=== PATIENT | female | born 1950 | race Native Hawaiian/Other Pacific Islander ===

== ENCOUNTER 2016-05-23 | Outpatient (CLI) | payer OTHER | END 2016-05-23 13:51 | disposition critical access hospital (66) | CPT/HCPCS: A0425; A0427 ==

== ENCOUNTER 2016-05-23 14:42 | Emergency (ER) | payer OTHER ==
[2016-05-23] MEDS ORDERED: SODIUM CHLORIDE 0.9% 1,000 ML IV ONE (14:51)
== END 2016-05-23 17:38 | disposition home or self-care (01) ==
DX: K52.9 Noninfective gastroenteritis and colitis, unspecified (principal); E86.0 Dehydration; I10 Essential (primary) hypertension; Z87.891 Personal history of nicotine dependence

== ENCOUNTER 2016-06-01 10:49 | Outpatient (CLI) | payer OTHER | END 2016-06-01 10:50 | disposition home or self-care (01) | DX: M17.12 Unilateral primary osteoarthritis, left knee (principal) ==

== ENCOUNTER 2016-06-13 17:07 | Outpatient (CLI) | payer MEDICAID, OTHER | END 2016-06-13 17:08 | disposition home or self-care (01) | DX: E78.5 Hyperlipidemia, unspecified (principal); E66.9 Obesity, unspecified; E87.1 Hypo-osmolality and hyponatremia; E11.65 Type 2 diabetes mellitus with hyperglycemia ==

== ENCOUNTER 2016-06-14 07:27 | Outpatient (CLI) | payer MEDICAID, OTHER | END 2016-06-14 07:28 | disposition critical access hospital (66) | LOC: EMS 07:27 | PROVIDERS: ATTEND Surgery | DX: R41.9 Unspecified symptoms and signs involving cognitive functions and awareness (principal); W18.30XA Fall on same level, unspecified, initial encounter; Z91.81 History of falling; Y93.9 Activity, unspecified; Y92.002 Bathroom of unspecified non-institutional (private) residence as the place of occurrence of the external cause | CPT/HCPCS: A0425; A0427 ==

== ENCOUNTER 2016-06-14 07:42 | Observation (INO) | payer OTHER, MEDICAID ==
[2016-06-14] MEDS ORDERED: SODIUM CHLORIDE 0.9% 1,000 ML IV ONE (08:44)
[2016-06-14] MEDS ORDERED: SODIUM CHLORIDE FLUSH 0.9% 10 ML SYRINGE IVP PRN ×2 (10:45→11:24)
[2016-06-14] MEDS ORDERED: ONDANSETRON 4 MG/2 ML VIAL IVP PRN ×2 (10:45→11:25)
[2016-06-14] MEDS ORDERED: ACETAMINOPHEN 325 MG TABLET PO PRN ×2 (10:45→11:24)
[2016-06-14] MEDS ORDERED: ONDANSETRON ODT 4 MG TABLET TL PRN ×2 (10:45→11:25)
[2016-06-14] MEDS ORDERED: oxyCODONE 5 MG TABLET PO PRN (10:45)
[2016-06-14] MEDS ORDERED: SODIUM CHLORIDE 0.9% 1,000 ML IV SCH (11:00)
[2016-06-14] MEDS ORDERED: INSULIN REGULAR HUMAN 100 UNIT/1 ML 10 ML MDV SUBQ SCH (12:00)
[2016-06-14] MEDS: SODIUM CHLORIDE FLUSH 0.9% 10 ML SYRINGE IVP SCH ×2 (12:14→22:22)
[2016-06-14] MEDS: SODIUM CHLORIDE 0.9% 1,000 ML IV SCH ×2 (12:14→22:39)
[2016-06-14] MEDS: INSULIN REGULAR HUMAN 100 UNIT/1 ML 10 ML MDV SUBQ SCH ×2 (12:19→19:14)
[2016-06-14] MEDS ORDERED: SODIUM CHLORIDE FLUSH 0.9% 10 ML SYRINGE IVP SCH (14:00)
[2016-06-14] MEDS: cefTRIAXone 2 GM in SODIUM CHLORIDE 0.9% MINIBAG 100 ML IV SCH (17:27)
[2016-06-14] MEDS ORDERED: INSULIN GLARGINE 300 UNIT/3 ML PEN SUBQ SCH (18:00)
[2016-06-14] MEDS: INSULIN GLARGINE 300 UNIT/3 ML PEN SUBQ SCH (19:11)
[2016-06-15] MEDS: INSULIN REGULAR HUMAN 100 UNIT/1 ML 10 ML MDV SUBQ SCH ×3 (01:26→12:24)
[2016-06-15] MEDS: SODIUM CHLORIDE FLUSH 0.9% 10 ML SYRINGE IVP SCH ×3 (05:55→22:17)
[2016-06-15] MEDS: INSULIN GLARGINE 300 UNIT/3 ML PEN SUBQ SCH ×2 (06:46→18:39)
[2016-06-15] MEDS ORDERED: CLOPIDOGREL 75 MG TABLET PO SCH (09:00)
[2016-06-15] MEDS ORDERED: ASPIRIN EC 81 MG TABLET PO SCH (09:00)
[2016-06-15] MEDS ORDERED: ATORVASTATIN 40 MG TABLET PO SCH (09:00)
[2016-06-15] MEDS ORDERED: POLYETHYLENE GLYCOL 3350 17 GM PACKET PO SCH (09:00)
[2016-06-15] MEDS: ATORVASTATIN 40 MG TABLET PO SCH (09:54)
[2016-06-15] MEDS: POLYETHYLENE GLYCOL 3350 17 GM PACKET PO SCH (09:55)
[2016-06-15] MEDS: SENNA 8.6 MG TABLET PO SCH (09:55)
[2016-06-15] MEDS: CLOPIDOGREL 75 MG TABLET PO SCH (09:55)
[2016-06-15] MEDS: DOCUSATE SODIUM 250 MG CAPSULE PO SCH (09:55)
[2016-06-15] MEDS: ASPIRIN EC 81 MG TABLET PO SCH (09:56)
[2016-06-15] MEDS: INSULIN ASPART 300 UNIT/3 ML PEN SUBQ SCH ×2 (18:32→22:15)
[2016-06-15] MEDS: cefTRIAXone 2 GM in SODIUM CHLORIDE 0.9% MINIBAG 100 ML IV SCH (18:40)
[2016-06-16] MEDS: oxyCODONE 5 MG TABLET PO PRN ×2 (04:05→17:06)
[2016-06-16] MEDS: INSULIN GLARGINE 300 UNIT/3 ML PEN SUBQ SCH ×3 (06:07→23:36)
[2016-06-16] MEDS: SODIUM CHLORIDE FLUSH 0.9% 10 ML SYRINGE IVP SCH ×3 (06:08→22:20)
[2016-06-16] MEDS: INSULIN ASPART 300 UNIT/3 ML PEN SUBQ SCH ×4 (08:38→22:20)
[2016-06-16] MEDS: CLOPIDOGREL 75 MG TABLET PO SCH (08:39)
[2016-06-16] MEDS: POLYETHYLENE GLYCOL 3350 17 GM PACKET PO SCH (08:39)
[2016-06-16] MEDS: DOCUSATE SODIUM 250 MG CAPSULE PO SCH (08:39)
[2016-06-16] MEDS: SENNA 8.6 MG TABLET PO SCH (08:40)
[2016-06-16] MEDS: ATORVASTATIN 40 MG TABLET PO SCH (08:40)
[2016-06-16] MEDS: ASPIRIN EC 81 MG TABLET PO SCH (08:40)
[2016-06-16] MEDS: CEPHALEXIN 250 MG CAPSULE PO SCH ×2 (14:06→17:58)
[2016-06-16] MEDS ORDERED: INSULIN GLARGINE 300 UNIT/3 ML PEN SUBQ SCH (20:38)
[2016-06-17] MEDS: CEPHALEXIN 250 MG CAPSULE PO SCH ×2 (00:01→05:58)
[2016-06-17] MEDS: INSULIN GLARGINE 300 UNIT/3 ML PEN SUBQ SCH (05:58)
[2016-06-17] MEDS: SODIUM CHLORIDE FLUSH 0.9% 10 ML SYRINGE IVP SCH (05:58)
[2016-06-17] MEDS: CLOPIDOGREL 75 MG TABLET PO SCH (08:57)
[2016-06-17] MEDS: ASPIRIN EC 81 MG TABLET PO SCH (08:57)
[2016-06-17] MEDS: ATORVASTATIN 40 MG TABLET PO SCH (08:57)
[2016-06-17] MEDS: INSULIN ASPART 300 UNIT/3 ML PEN SUBQ SCH (08:57)
[2016-06-17] MEDS: DOCUSATE SODIUM 250 MG CAPSULE PO SCH (09:03)
[2016-06-17] MEDS: POLYETHYLENE GLYCOL 3350 17 GM PACKET PO SCH (09:03)
[2016-06-17] MEDS: SENNA 8.6 MG TABLET PO SCH (09:03)
[2016-06-17] MEDS ORDERED: INSULIN ASPART 300 UNIT/3 ML PEN SUBQ SCH (12:00)
== END 2016-06-17 11:06 | disposition home or self-care (01) ==
PROC: 3E0U33Z Introduction of Anti-inflammatory into Joints, Percutaneous Approach (ICD-10-PCS; principal; 2016-06-16)
DX: G93.41 Metabolic encephalopathy (principal); N30.00 Acute cystitis without hematuria; B95.1 Streptococcus, group B, as the cause of diseases classified elsewhere; E11.8 Type 2 diabetes mellitus with unspecified complications; I10 Essential (primary) hypertension; M17.12 Unilateral primary osteoarthritis, left knee; I25.10 Atherosclerotic heart disease of native coronary artery without angina pectoris; N28.9 Disorder of kidney and ureter, unspecified; E86.0 Dehydration; I48.2 Chronic atrial fibrillation; I49.5 Sick sinus syndrome; I69.354 Hemiplegia and hemiparesis following cerebral infarction affecting left non-dominant side; I69.398 Other sequelae of cerebral infarction; G93.89 Other specified disorders of brain; E66.01 Morbid (severe) obesity due to excess calories; E78.5 Hyperlipidemia, unspecified; G47.33 Obstructive sleep apnea (adult) (pediatric); W19.XXXA Unspecified fall, initial encounter; Y92.002 Bathroom of unspecified non-institutional (private) residence as the place of occurrence of the external cause; Y90.0 Blood alcohol level of less than 20 mg/100 ml; Z68.41 Body mass index [BMI] 40.0-44.9, adult; Z91.14 Patient's other noncompliance with medication regimen; Z91.81 History of falling; Z79.02 Long term (current) use of antithrombotics/antiplatelets; Z79.4 Long term (current) use of insulin; Z79.01 Long term (current) use of anticoagulants; Z87.891 Personal history of nicotine dependence; Z95.0 Presence of cardiac pacemaker; Z79.82 Long term (current) use of aspirin; Z63.4 Disappearance and death of family member
CPT/HCPCS: 20610; 36415; 51701; 70450; 71010; 73560; 80048; 80053; 80306; 80320; 81001; 83605; 83690; 83735; 85025; 85610; 85730; 87040; 87077; 87086; 87181; 93005; 93010; 93880; 96361; 96365; 96366; 97161; 99284; 99285; A9270; G0378; J1815

== ENCOUNTER 2016-08-14 08:34 | Outpatient (CLI) | payer OTHER, MEDICAID | END 2016-08-14 08:35 | disposition home or self-care (01) | DX: I10 Essential (primary) hypertension (principal) ==

== ENCOUNTER 2016-08-21 08:44 | Outpatient (CLI) | payer OTHER, MEDICAID | END 2016-08-21 08:45 | disposition home or self-care (01) | DX: I48.0 Paroxysmal atrial fibrillation (principal); I44.2 Atrioventricular block, complete; Z95.0 Presence of cardiac pacemaker; I10 Essential (primary) hypertension; E78.2 Mixed hyperlipidemia; N28.9 Disorder of kidney and ureter, unspecified ==

== ENCOUNTER 2016-09-29 12:44 | Outpatient (CLI) | payer OTHER, MEDICAID | END 2016-09-29 12:45 | disposition short-term general hospital (02) | LOC: EMS 12:44 | PROVIDERS: ATTEND Surgery | DX: R19.7 Diarrhea, unspecified (principal); R42 Dizziness and giddiness | CPT/HCPCS: A0425; A0429 ==

== ENCOUNTER 2016-10-20 14:03 | Outpatient (CLI) | payer OTHER, MEDICAID ==
[2016-10-20 20:10] LABS: CREATININE 1.5 mg/dL (0.4-1.0); POTASSIUM 4.4 mmol/L (3.5-5.0)
[2016-10-20 21:00] LABS: HEMOGLOBIN A1C 1.43 g/dL
== END 2016-10-20 14:04 | disposition home or self-care (01) ==
LOC: LAB.N 14:03
PROVIDERS: ATTEND Family Medicine
DX: E11.65 Type 2 diabetes mellitus with hyperglycemia (principal)
CPT/HCPCS: 36415; 80048; 83036

== ENCOUNTER 2016-11-24 16:15 | Emergency (ER) | payer OTHER, MEDICAID ==
[2016-11-24] MEDS ORDERED: SODIUM CHLORIDE 0.9% 1,000 ML IV ONE ×2 (16:54→18:17)
[2016-11-24] MEDS ORDERED: INSULIN REGULAR HUMAN 100 UNIT in SODIUM CHLORIDE 0.9% 100ML 99 ML IV STA (17:13)
[2016-11-24] MEDS ORDERED: INSULIN REGULAR HUMAN 100 UNIT/1 ML 10 ML MDV IVP STA (17:13)
[2016-11-24 17:14] LABS: BILIRUBIN,URINE NEGATIVE (NEGATIVE); PH,URINE 5.5 PH (5.0-7.5)
[2016-11-24 17:17] LABS: UA w/ MICROSCOPIC CHARGE YES
[2016-11-24] MEDS ORDERED: INSULIN REGULAR HUMAN 100 UNIT/1 ML 10 ML MDV ONE ×3 (17:26→19:12)
[2016-11-24 17:27] LABS: WBC,URINE 0-3 /HPF (0-5)
[2016-11-24] MEDS ORDERED: SODIUM CHLORIDE FLUSH 0.9% 10 ML SYRINGE IVP ONE (17:27)
[2016-11-24 17:28] LABS: UR CULTURE IF IND NOT INDICATED
[2016-11-24 17:30] LABS: BASOPHILS % (AUTO) 0.6 %; EOSINOPHILS # (AUTO) 0.1 10^3/uL (0.0-0.7); EOSINOPHILS % (AUTO) 1.3 %; HCT - HEMATOCRIT 40.3 % (37.0-47.0); HGB - HEMOGLOBIN 13.2 g/dL (12.0-16.0); LYMPHOCYTES # (AUTO) 1.5 10^3/uL (1.5-3.5); LYMPHOCYTES % (AUTO) 20.7 %; MEAN CORPUSCULAR HEMOGLOBIN 28.5 pg (27.0-31.0); MEAN CORPUSCULAR HGB CONC 32.8 g/dL (32.0-36.0); MEAN CORPUSCULAR VOLUME 86.8 fL (81.0-99.0); MEAN PLATELET VOLUME 9.1 fL (7.9-10.8); MONOCYTES # (AUTO) 0.5 10^3/uL (0.0-1.0); MONOCYTES % (AUTO) 6.9 %; NEUTROPHILS # (AUTO) 5.2 10^3/uL (1.5-6.6); NEUTROPHILS % (AUTO) 70.5 %; RED BLOOD COUNT 4.65 10^6/uL (4.20-5.40); RED CELL DISTRIBUTION WIDTH 13.5 % (12.0-15.0); UNCORRECTED WHITE BLOOD COUNT 7.3 x10^3/uL; WHITE BLOOD COUNT 7.3 x10^3/uL (4.8-10.8)
[2016-11-24 17:47] LABS: ALBUMIN/GLOBULIN RATIO 0.8 (1.0-2.2); BILIRUBIN,TOTAL 0.6 mg/dL (0.2-1.0); CALCIUM 8.9 mg/dL (8.5-10.3); CREATININE 2.1 mg/dL (0.4-1.0); POTASSIUM 4.8 mmol/L (3.5-5.0); TOTAL PROTEIN 7.7 g/dL (6.7-8.2)
--- NOTE | 2016-11-24 18:42 | ED Physician Documentation ---
History of Present Illness - Stated complaint Stated Complaint: DIZZY,NAUSEA - Chief complaint Chief Complaint: General - History obtained from History obtained from: Patient, Family - Additonal information Additional information: The patient is a 66-year-old insulin-dependent diabetic female who presents with dizziness and nausea that has been waxing and waning for the past 3 days. She reports vomiting 2 today. She reports associated lightheadedness. She denies fever, chest pain, shortness of breath, abdominal pain, or dysuria. She reports mild cough without sputum production. She also reports frequency of urination. She reports having history of similar symptoms in the past with urinary tract infection. She was seen in the clinic today and was found to have an elevated blood sugar of 563, and was subsequently sent here for further evaluation and treatment. Review of Systems Constitutional: reports: Fatigue, Other (Lightheaded). denies: Fever Ears: denies: Tinnitus/ringing Nose: denies: Congestion Throat: denies: Sore throat Cardiac: denies: Chest pain / pressure, Palpitations Respiratory: reports: Cough (Mild). denies: Dyspnea GI: reports: Nausea, Vomiting. denies: Abdominal Pain, Diarrhea : reports: Frequency. 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 : Benign prostate hypertrophy HEENT: Other Psych: None Musculoskeletal: Osteoarthritis Derm: None - Past Surgical History Past Surgical History: Yes - Present Medications Home Medications: Ambulatory Orders Medication Instructions Recorded Confirmed Apixaban [Eliquis] 5 mg PO BID 06/14/16 06/14/16 Atorvastatin Calcium 40 mg PO QPM 06/14/16 06/14/16 Carvedilol 25 mg PO BID 06/14/16 06/14/16 Chlorthalidone 25 mg PO BID 06/14/16 06/14/16 Insulin Glargine [Lantus Solostar] 60 units SUBQ DAILY 06/14/16 06/14/16 Insulin Glulisine [Apidra Solostar] 3 units SUBQ TIDWM 06/14/16 06/14/16 Losartan [Cozaar] 50 mg PO BID 06/14/16 06/14/16 Promethazine [Phenergan] 25 - 50 mg PO Q6H PRN #10 tab 11/24/16 - Allergies Allergies/Adverse Reactions: Allergies Allergy/AdvReac Type Severity Reaction Status Date / Time naproxen AdvReac Rash Verified 05/23/16 15:16 - Living Situation Living Situation: reports: With family - Social History Does the pt smoke?: No Smoking Status: Former smoker Does the pt have substance abuse?: No - Immunizations Immunizations are current?: No Immunizations: TDAP current <10years - POLST Patient has POLST: No PD ED PE NORMAL - Vitals Vital signs reviewed: Yes (Mild systolic hypertension.) - General General: Alert and oriented X 3, Well developed/nourished - HEENT HEENT: Atraumatic, EOMI, Pharynx benign, Other (Dry mucous membranes.) - Neck Neck: Supple, no meningeal sign, No adenopathy, No JVD - Cardiac Cardiac: RRR - Respiratory Respiratory: No respiratory distress, Clear bilaterally - Abdomen Abdomen: Soft, Non tender, No organomegaly - Back Back: No CVA TTP - Derm Derm: No rash - Extremities Extremities: No edema, No calf tenderness / cord - Neuro Neuro: Alert and oriented X 3, No motor deficit, No sensory deficit Results - Vitals Vitals: Vital Signs - 24 hr 11/24/16 11/24/16 16:24 19:26 Temperature 35.9 C L Heart Rate 60 60 Respiratory 14 16 Rate Blood Pressure 148/78 H 109/76 O2 Saturation 97 97 Oxygen O2 Source [With Activity] Room air O2 Source Room air - Labs Labs: Laboratory Tests 11/24/16 11/24/16 11/24/16 16:52 16:52 16:52 WBC 7.3 RBC 4.65 Hgb 13.2 Hct 40.3 MCV 86.8 MCH 28.5 MCHC 32.8 RDW 13.5 Plt Count 162 MPV 9.1 Neut # 5.2 Lymph # 1.5 [place] # 0.5 Eos # 0.1 Baso # 0.0 Absolute Nucleated RBC 0.00 Nucleated RBCs 0.0 Sodium 127 L Potassium 4.8 Chloride 91 L Carbon Dioxide 26 Anion Gap 10.0 BUN 68 H Creatinine 2.1 H Estimated GFR (MDRD) 24 L Glucose 596 H* POC Whole Bld Glucose Lactic Acid Calcium 8.9 Total Bilirubin 0.6 AST 19 ALT 13 Alkaline Phosphatase 113 Total Protein 7.7 Albumin 3.5 Globulin 4.2 Albumin/Globulin Ratio 0.8 L Lipase 19 L Urine Color YELLOW Urine Clarity CLEAR Urine pH 5.5 Ur Specific [place] 1.010 Urine Protein 30 H Urine Glucose (UA) >=1000 H Urine Ketones NEGATIVE Urine Occult Blood NEGATIVE Urine Nitrite NEGATIVE Urine Bilirubin NEGATIVE Urine Urobilinogen 0.2 (NORMAL) Ur Leukocyte Esterase NEGATIVE Urine RBC 0-5 Urine WBC 0-3 Ur Squamous Epith Cells MOD Squamous H Urine Bacteria None Seen Ur Microscopic Review INDICATED Urine Culture Comments NOT INDICATED 11/24/16 11/24/16 11/24/16 17:04 17:22 17:39 WBC RBC Hgb Hct MCV MCH MCHC RDW Plt Count MPV Neut # Lymph # [place] # Eos # Baso # Absolute Nucleated RBC Nucleated RBCs Sodium Potassium Chloride Carbon Dioxide Anion Gap BUN Creatinine Estimated GFR (MDRD) Glucose POC Whole Bld Glucose 556 H* 552 H* Lactic Acid 2.2 Calcium Total Bilirubin AST ALT Alkaline Phosphatase Total Protein Albumin Globulin Albumin/Globulin Ratio Lipase Urine Color Urine Clarity Urine pH Ur Specific [place] Urine Protein Urine Glucose (UA) Urine Ketones Urine Occult Blood Urine Nitrite Urine Bilirubin Urine Urobilinogen Ur Leukocyte Esterase Urine RBC Urine WBC Ur Squamous Epith Cells Urine Bacteria Ur Microscopic Review Urine Culture Comments 11/24/16 11/24/16 18:23 19:24 WBC RBC Hgb Hct MCV MCH MCHC RDW Plt Count MPV Neut # Lymph # [place] # Eos # Baso # Absolute Nucleated RBC Nucleated RBCs Sodium Potassium Chloride Carbon Dioxide Anion Gap BUN Creatinine Estimated GFR (MDRD) Glucose POC Whole Bld Glucose 446 H 373 H Lactic Acid Calcium Total Bilirubin AST ALT Alkaline Phosphatase Total Protein Albumin Globulin Albumin/Globulin Ratio Lipase Urine Color Urine Clarity Urine pH Ur Specific [place] Urine Protein Urine Glucose (UA) Urine Ketones Urine Occult Blood Urine Nitrite Urine Bilirubin Urine Urobilinogen Ur Leukocyte Esterase Urine RBC Urine WBC Ur Squamous Epith Cells Urine Bacteria Ur Microscopic Review Urine Culture Comments PD MEDICAL DECISION MAKING - ED course Complexity details: reviewed old records, reviewed results, re-evaluated patient , considered differential, d/w patient, d/w family ED course: The patient's presentation is significant for hyperglycemia in an insulin- dependent diabetic. She is not in ketoacidosis, with a normal bicarbonate of 26 , no ketones in her urine, and lactate of 2.2. Her clinical presentation is significant for dehydration, with a BUN of 68 and creatinine 2.1. Her initial blood sugar was elevated at 596. Following treatment it progressively improved , to 373 by the time of discharge. Treatment in the emergency department included administration of normal saline 1800 mL IV, regular insulin 10 units IV, 10 units subcutaneously, and a 2 unit per hour IV infusion. Following the above treatment she felt subjectively much improved. She demonstrated ability to drink fluids without recurrent nausea. I discussed with her and her family the importance of adequate fluid hydration, glucose monitoring, outpatient follow-up, as well as potentially worrisome signs or symptoms that should prompt reevaluation in the emergency department. She is being discharged with prescription for Phenergan. Departure - Departure Disposition: 01 Home, Self Care Clinical Impression: Dehydration Diabetes mellitus with hyperglycemia Qualifiers: Diabetes mellitus type: type 2 Diabetes mellitus mcfp insulin use: with mcfp use Qualified Code(s): E11.65 - Type 2 diabetes mellitus with hyperglycemia Condition: Stable Instructions: ED Dehydration Follow-Up: James Garcia MD [Primary Care Provider] - Prescriptions: Promethazine [Phenergan] 25 - 50 mg PO Q6H PRN #10 tab PRN Reason: Nausea / Vomiting Comments: Drink plenty of fluids. Continue insulin as previously prescribed. Continue to monitor your blood sugars, and take extra insulin as needed. You can use Phenergan as prescribed if needed for nausea. Follow up with your primary physician within 1 week. Call to schedule appointment. Return to the emergency department if you develop abdominal pain, persistent vomiting, recurrent dehydration, or otherwise worsening symptoms. Discharge Date/Time: 11/24/16 19:55
[2016-11-24] MEDS ORDERED: INSULIN REGULAR HUMAN 100 UNIT/1 ML 10 ML MDV SUBQ STA (18:45)
[2016-11-24 19:27] VITALS: BP 109/76
== END 2016-11-24 19:55 | disposition home or self-care (01) ==
LOC: ED 16:15
DX: E86.0 Dehydration (principal); E11.65 Type 2 diabetes mellitus with hyperglycemia; I10 Essential (primary) hypertension; I25.10 Atherosclerotic heart disease of native coronary artery without angina pectoris; Z86.73 Personal history of transient ischemic attack (TIA), and cerebral infarction without residual deficits; Z87.891 Personal history of nicotine dependence; Z79.4 Long term (current) use of insulin
CPT/HCPCS: 36415; 80053; 81001; 83605; 83690; 85025; 99284; J1815; 81003; 87086

== ENCOUNTER 2016-12-14 09:21 | Outpatient (CLI) | payer MEDICAID, OTHER ==
[2016-12-14 14:10] LABS: BASOPHILS % (AUTO) 0.4 %; EOSINOPHILS # (AUTO) 0.1 10^3/uL (0.0-0.7); EOSINOPHILS % (AUTO) 0.5 %; HGB - HEMOGLOBIN 12.7 g/dL (12.0-16.0); LYMPHOCYTES # (AUTO) 2.2 10^3/uL (1.5-3.5); LYMPHOCYTES % (AUTO) 17.2 %; MEAN CORPUSCULAR HEMOGLOBIN 28.6 pg (27.0-31.0); MEAN CORPUSCULAR HGB CONC 32.6 g/dL (32.0-36.0); MEAN CORPUSCULAR VOLUME 87.7 fL (81.0-99.0); MEAN PLATELET VOLUME 8.9 fL (7.9-10.8); MONOCYTES # (AUTO) 0.7 10^3/uL (0.0-1.0); MONOCYTES % (AUTO) 5.8 %; NEUTROPHILS # (AUTO) 9.6 10^3/uL (1.5-6.6); NEUTROPHILS % (AUTO) 76.1 %; RED BLOOD COUNT 4.45 10^6/uL (4.20-5.40); UNCORRECTED WHITE BLOOD COUNT 12.6 x10^3/uL; WHITE BLOOD COUNT 12.6 x10^3/uL (4.8-10.8)
[2016-12-14 14:23] LABS: ALBUMIN/GLOBULIN RATIO 0.9 (1.0-2.2); BILIRUBIN,TOTAL 0.4 mg/dL (0.2-1.0); BUN - BLOOD UREA NITROGEN 46 mg/dL (6-20); CARBON DIOXIDE - CO2 26 mmol/L (21-32); CHLORIDE 102 mmol/L (101-111); CREATININE 1.6 mg/dL (0.4-1.0); GFR - MDRD 32 (>89); GLUCOSE 127 mg/dL (70-100); SODIUM 136 mmol/L (135-145); TOTAL PROTEIN 7.7 g/dL (6.7-8.2)
[2016-12-14 14:57] LABS: THYROID STIMULATING HORMONE 1.09 uIU/mL (0.34-5.60)
== END 2016-12-14 09:22 | disposition home or self-care (01) ==
LOC: LAB.N 09:21
PROVIDERS: ATTEND Family Medicine
DX: R19.7 Diarrhea, unspecified (principal); E11.65 Type 2 diabetes mellitus with hyperglycemia; G31.84 Mild cognitive impairment of uncertain or unknown etiology
CPT/HCPCS: 36415; 80053; 82009; 82607; 84439; 84443; 85025

== ENCOUNTER 2016-12-21 11:38 | Outpatient (CLI) | payer OTHER ==
--- NOTE | 2016-12-21 13:28 | XRAY Report ---
TWO-VIEW CHEST: 12/21/2016 CLINICAL INDICATION: Persistent cough. COMPARISON: 06/14/2016, 01/31/2007. FINDINGS: Frontal and lateral views of the chest demonstrate a normal cardiac silhouette. A left keene bclavian dual-chamber pacemaker is stable. The lungs are now clear. No effusion or pneumothorax is present. IMPRESSION: STABLE PACEMAKER. NO EVIDENCE OF ACUTE CARDIOPULMONARY DISEASE. JOB #: [id number] EXT JOB #:[id number]
== END 2016-12-21 11:39 | disposition home or self-care (01) ==
LOC: DI.N 11:38
PROVIDERS: ATTEND Family Medicine
DX: R05 Cough (principal); Z95.0 Presence of cardiac pacemaker
CPT/HCPCS: 71020

== ENCOUNTER 2016-12-25 11:03 | Outpatient (CLI) | payer OTHER | END 2016-12-25 11:04 | disposition critical access hospital (66) | LOC: EMS 11:03 | PROVIDERS: ATTEND Surgery | DX: R42 Dizziness and giddiness (principal); Z79.01 Long term (current) use of anticoagulants; W17.81XA Fall down embankment (hill), initial encounter | CPT/HCPCS: A0425; A0429 ==

== ENCOUNTER 2016-12-25 11:41 | Emergency (ER) | payer OTHER ==
--- NOTE | 2016-12-25 12:32 | CT Preliminary Report ---
Exam: CT Head W/O IMPRESSION: 1. No acute intracranial hemorrhage or definite acute intracranial disease. 2. Chronic gliosis at the right parietal lobe which may be from previous old infarction. 3. Bgsc-mm-wvxpenkg age-related brain tissue volume loss. [facility] SITE ID: [id number]
--- NOTE | 2016-12-25 12:34 | CT Report ---
EXAM: CT HEAD EXAM DATE: 12/25/2016 12:10 PM. CLINICAL HISTORY: Status post 5 foot fall. On anticoagulant therapy. Clinical concern for intracrania l hemorrhage. COMPARISON: Head CT from 06/15/2016. TECHNIQUE: Multiaxial CT images were obtained from the foramen magnum to the vertex. IV contrast: Non e. Reformats: Coronal. In accordance with CT protocol optimization, one or more of the following dose reduction techniques w ere utilized for this exam: automated exposure control, adjustment of mA and/or KV based on patient s ize, or use of iterative reconstructive technique. FINDINGS: No acute intracranial hemorrhage. Vfxx-sk-yqzvjptx age-related brain tissue volume loss. Chronic glio sis at the right parietal lobe which is unchanged. No mass effect or midline shift. Ventricular and e xtra-axial spaces are slightly prominent due to the generalized tissue volume loss. Sinuses: Orbits and globes are unremarkable. Small retention cyst or polyp at the left maxillary sinu s. Bones: No evidence of fracture or calvarial defect. Other: None. IMPRESSION: 1. No acute intracranial hemorrhage or definite acute intracranial disease. 2. Chronic gliosis at the right parietal lobe which may be from previous old infarction. 3. Xxak-ha-mzjyftmc age-related brain tissue volume loss. [facility] Referring Provider Line: [phone] SITE ID: [id number]
--- NOTE | 2016-12-25 12:39 | CT Preliminary Report ---
Exam: CT Cervical Spine W/O IMPRESSION: 1. No acute fracture or malalignment. 2. Facet arthropathy and osteophytosis. No significant canal or foraminal stenoses. [facility] SITE ID: [id number]
--- NOTE | 2016-12-25 12:41 | CT Report ---
EXAM: CT CERVICAL SPINE WITHOUT CONTRAST DATE: 12/25/2016 12:22 PM HISTORY: Neck pain after fall. COMPARISONS: None. TECHNIQUE: Thin-section axial images were acquired of the cervical spine without contrast. Post-proce ssing: Coronal and sagittal reformats. Other: None. In accordance with CT protocol optimization, one or more of the following dose reduction techniques w ere utilized for this exam: automated exposure control, adjustment of mA and/or KV based on patient s ize, or use of iterative reconstructive technique. FINDINGS: Alignment: Normal. No scoliosis or spondylolisthesis. Bones: No fracture or bone lesion. Interspace Levels/Facets: The occipito-atlantal joint is intact. C1-C2: Moderate to severe arthritic changes between the anterior arch of C1 and the odontoid. No sten oses. C2-C3: Mild right and ffxq-lp-ajwupyqm left facet arthropathy. No stenoses. C3-C4: Mild left and severe right facet arthropathy. Mild right foraminal stenosis. C4-C5: Moderate to severe right and swhv-om-gueescir left facet arthropathy. Mild right foraminal vinny nosis. C5-C6: Mild right and moderate left facet arthropathy. Small to moderate size anterior osteophytes. N o stenoses. C6-C7: Dzme-sb-ogjanctv facet arthropathy. No stenoses. C7-T1: Small to moderate size anterior osteophytes. Asnq-hw-dqczohrl facet arthropathy. Mild foramina l stenoses. Musculature: Normal. No fatty atrophy. Other: The paravertebral and prevertebral soft tissues are normal. The lung apices are clear. IMPRESSION: 1. No acute fracture or malalignment. 2. Facet arthropathy and osteophytosis. No significant canal or foraminal stenoses. [facility] Referring Provider Line: [phone] SITE ID: [id number]
[2016-12-25] MEDS ORDERED: BACITRACIN OINT TOP ONE (13:19)
--- NOTE | 2016-12-25 13:32 | ED Physician Documentation ---
History of Present Illness - Stated complaint Stated Complaint: 6FT FALL - Chief complaint Chief Complaint: General - Additonal information Additional information: hx from pt was picking blackberries and fell backwards into a ditch hit back of head no SNOW no LOC mild neck pain no numbness or weakness no chest back abd ext injuries except scratches on eliquis Review of Systems Constitutional: denies: Fever, Chills Cardiac: denies: Chest pain / pressure Respiratory: denies: Dyspnea GI: denies: Abdominal Pain Musculoskeletal: reports: Neck pain. denies: Back pain, Extremity pain Neurologic: reports: Head injury. 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 : Benign prostate hypertrophy HEENT: Other Psych: None Musculoskeletal: Osteoarthritis Derm: None - Past Surgical History Past Surgical History: Yes - Present Medications Home Medications: Ambulatory Orders Medication Instructions Recorded Confirmed Apixaban [Eliquis] 5 mg PO BID 06/14/16 12/25/16 Atorvastatin Calcium 40 mg PO QPM 06/14/16 12/25/16 Carvedilol 25 mg PO BID 06/14/16 12/25/16 Chlorthalidone 25 mg PO BID 06/14/16 12/25/16 Insulin Glargine [Lantus Solostar] 60 units SUBQ DAILY 06/14/16 12/25/16 Insulin Glulisine [Apidra Solostar] 3 units SUBQ TIDWM 06/14/16 12/25/16 Losartan [Cozaar] 50 mg PO BID 06/14/16 12/25/16 Promethazine [Phenergan] 25 - 50 mg PO Q6H PRN #10 tab 11/24/16 12/25/16 - Allergies Allergies/Adverse Reactions: Allergies Allergy/AdvReac Type Severity Reaction Status Date / Time naproxen AdvReac Rash Verified 05/23/16 15:16 - Social History Does the pt smoke?: No Smoking Status: Former smoker Does the pt have substance abuse?: No - Immunizations Immunizations are current?: No Immunizations: TDAP current <10years - POLST Patient has POLST: No PD ED PE NORMAL - Vitals Vital signs reviewed: Yes - General General: Alert and oriented X 3 - HEENT HEENT: Atraumatic, PERRL - Neck Neck: No: No bony TTP (mild bony midline TTP non focal) - Cardiac Cardiac: RRR - Respiratory Respiratory: No respiratory distress, Clear bilaterally - Abdomen Abdomen: Soft, Non tender - Derm Derm: Normal color - Extremities Extremities: No deformity - Neuro Neuro: Alert and oriented X 3, barrel loader 2-12 intact, No motor deficit, No sensory deficit, Normal speech Results - Vitals Vitals: Vital Signs - 24 hr 12/25/16 12/25/16 11:42 13:01 Temperature 36.6 C 36.4 C L Heart Rate 66 62 Respiratory 18 15 Rate Blood Pressure 167/102 H 157/76 H O2 Saturation 94 96 Oxygen O2 Source [With Activity] Room air O2 Source Room air - Rads (name of study) CTH Radiology: See rad report (no acute) CT CS Radiology: See rad report (no acute) Departure - Departure Disposition: 01 Home, Self Care Clinical Impression: Fall Qualifiers: Encounter type: initial encounter Qualified Code(s): W19.XXXA - Unspecified fall, initial encounter Head injury Qualifiers: Encounter type: initial encounter Qualified Code(s): S09.90XA - Unspecified injury of head, initial encounter Neck sprain Qualifiers: Encounter type: initial encounter Qualified Code(s): S13.9XXA - Sprain of joints and ligaments of unspecified parts of neck, initial encounter Condition: Good Instructions: ED Head Injury Closed, ED Sprain Strain Neck Comments: The CT scans were fine. Recommend tylenol for pain. And recommend that you go home and shower / clean all the blackberry scratches and apply antibiotic ointment to prevent infection Also your blood pressure was high today - please follow up with your PMD for a recheck
[2016-12-25 13:33] VITALS: BP 167/77
== END 2016-12-25 13:50 | disposition home or self-care (01) ==
LOC: EDUNIT# → ED 11:41
DX: S09.90XA Unspecified injury of head, initial encounter (principal); S13.9XXA Sprain of joints and ligaments of unspecified parts of neck, initial encounter; W17.89XA Other fall from one level to another, initial encounter; Y93.89 Activity, other specified; I10 Essential (primary) hypertension; I25.10 Atherosclerotic heart disease of native coronary artery without angina pectoris; E11.8 Type 2 diabetes mellitus with unspecified complications; Z79.4 Long term (current) use of insulin; Z86.73 Personal history of transient ischemic attack (TIA), and cerebral infarction without residual deficits; Z87.891 Personal history of nicotine dependence
CPT/HCPCS: 70450; 72125; 99283; A9270

== ENCOUNTER 2017-10-12 09:07 | Outpatient (CLI) | payer MEDICARE, OTHER | END 2017-10-12 09:08 | disposition short-term general hospital (02) | LOC: EMS 09:07 | PROVIDERS: ATTEND Surgery | DX: R40.20 Unspecified coma (principal); R09.89 Other specified symptoms and signs involving the circulatory and respiratory systems; R73.09 Other abnormal glucose | CPT/HCPCS: A0425; A0427 ==

== ENCOUNTER 2017-10-20 20:32 | Outpatient (CLI) | payer OTHER | END 2017-10-20 20:33 | disposition EMS.NT | LOC: EMS 20:32 | PROVIDERS: ATTEND Surgery | DX: R46.4 Slowness and poor responsiveness (principal); R73.09 Other abnormal glucose; W07.XXXA Fall from chair, initial encounter; Y92.009 Unspecified place in unspecified non-institutional (private) residence as the place of occurrence of the external cause ==

== ENCOUNTER 2017-12-19 08:00 | Outpatient (CLI) | payer MEDICARE, OTHER ==
[2017-12-19 12:43] LABS: HB2 TOTAL 14.9 g/dL; HEMOGLOBIN A1C 1.11 g/dL
[2017-12-19 21:04] LABS: CALCIUM 8.2 mg/dL (8.5-10.3); CREATININE 1.7 mg/dL (0.4-1.0)
== END 2017-12-19 08:01 | disposition home or self-care (01) ==
LOC: LAB.R 08:00
PROVIDERS: ATTEND Family Medicine
DX: E11.9 Type 2 diabetes mellitus without complications (principal)
CPT/HCPCS: 36415; 80048; 83036

== ENCOUNTER 2018-01-01 08:00 | Outpatient (CLI) | payer MEDICARE, OTHER ==
[2018-01-01 14:35] LABS: ALBUMIN 2.4 g/dL (3.2-5.5); ALBUMIN/GLOBULIN RATIO 0.6 (1.0-2.2); BILIRUBIN,TOTAL 0.5 mg/dL (0.2-1.0); CALCIUM 8.4 mg/dL (8.5-10.3); CREATININE 1.6 mg/dL (0.4-1.0); TOTAL PROTEIN 6.5 g/dL (6.7-8.2)
== END 2018-01-01 08:01 | disposition home or self-care (01) ==
LOC: LAB.N 08:00
PROVIDERS: ATTEND Internal Medicine Cardiovascular Disease
DX: R06.02 Shortness of breath (principal); I10 Essential (primary) hypertension
CPT/HCPCS: 36415; 80053; 83880

== ENCOUNTER 2018-01-03 11:24 | Emergency (ER) | payer MEDICARE, OTHER ==
--- NOTE | 2018-01-03 11:54 | ED Physician Documentation ---
PD HPI FOCAL NEURO - Stated complaint Stated Complaint: POSS CVA - Chief complaint Chief Complaint: Neuro - History obtained from History obtained from: EMS - History of Present Illness Timing - onset: Today (Woke at 0700 mumbling and walking around the house with her top off and acting very strange. Of note she has a history of CVA and is on Eliquis. 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 : Benign prostate hypertrophy HEENT: Other Psych: None Musculoskeletal: Osteoarthritis Derm: None - Past Surgical History Past Surgical History: Yes - Present Medications Home Medications: Ambulatory Orders Medication Instructions Recorded Confirmed RX: Apixaban [Eliquis] 5 mg PO BID 06/14/16 12/25/16 RX: Atorvastatin Calcium 40 mg PO QPM 06/14/16 12/25/16 RX: Carvedilol 25 mg PO BID 06/14/16 12/25/16 RX: Chlorthalidone 25 mg PO BID 06/14/16 12/25/16 RX: Insulin Glargine [Lantus 60 units SUBQ DAILY 06/14/16 12/25/16 Solostar] RX: Insulin Glulisine [Apidra 3 units SUBQ TIDWM 06/14/16 12/25/16 Solostar] RX: Losartan [Cozaar] 50 mg PO BID 06/14/16 12/25/16 Promethazine [Phenergan] 25 - 50 mg PO Q6H PRN #10 tab 11/24/16 12/25/16 - Allergies Allergies/Adverse Reactions: Allergies Allergy/AdvReac Type Severity Reaction Status Date / Time lisinopril AdvReac Intermediate Unknown Verified 01/03/18 11:29 naproxen AdvReac Rash Verified 05/23/16 15:16 - Social History Does the pt smoke?: No Smoking Status: Never smoker Does the pt have substance abuse?: No - Immunizations Immunizations are current?: No Immunizations: TDAP current <10years - POLST Patient has POLST: No PD ED PE NORMAL - Vitals Vital signs reviewed: Yes - General General: Other (She is alert and follows simple commands. She is able to state her first name but otherwise can not verbalize just about anything. Cannot tell me the date or the year or the month. She has an obvious left gaze preference and will not look to the right past midline. She does not respond to threat on the right.) - HEENT HEENT: PERRL - Neck Neck: Supple, no meningeal sign, No bony TTP - Cardiac Cardiac: RRR, No murmur - Respiratory Respiratory: No respiratory distress, Clear bilaterally - Abdomen Abdomen: Normal bowel sounds, Soft, Non tender - Back Back: No CVA TTP, No spinal TTP - Derm Derm: Normal color, Warm and dry - Extremities Extremities: No edema, No calf tenderness / cord - Neuro Neuro: Other (See NIH stroke scale, note she does not respond to visual threat on the right but does grimace to pain in all upper and lower extremities. She follows commands in all upper and lower extremities but is definitely weak on the right.) NIHSS - Time Time: 11:49 - Level of Consciousness Level of consciousness: (1) Not alert, but arousable by minor stimulation to obey, or answer LOC Questions: (2) Answers neither correct LOC Commands: (1) Performs one correctly - Gaze Best Gaze: (2) Forced deviation - Visual Visual: (2) Complete Hemianopia - Facial Palsy Facial Palsy: (3) Complete paralysis - Motor Arms (both separate) Motor Arm (right): (2) Some effort against gravity Motor Arm (left): (1) Drift - Motor Legs (both separate) Motor Leg (right): (1) Drift Motor Leg (left): (2) Some effort against gravity - Limb Ataxia Limb Ataxia: (0) Absent - Sensory Sensory: (1) Xwie-it-eoaqjbdw loss - Best Language Best Language: (2) Severe aphasia - Dysarthria Dysarthria: (2) Severe dysarthria - Extinction and Inattention (formally neg Extinction and inattention: (2) Profound jeny-inattention or extinction to more than one modality - Total Score/Results Total Score/Result: 24 Results - Vitals Vitals: Vital Signs - 24 hr 01/03/18 01/03/18 01/03/18 11:31 12:58 13:03 Temperature 36.5 C Heart Rate 65 66 65 Respiratory 18 23 17 Rate Blood Pressure 221/107 H 227/108 H 177/78 H O2 Saturation 98 91 L 92 01/03/18 01/03/18 01/03/18 13:15 13:25 13:43 Temperature 37.3 C Heart Rate 65 65 65 Respiratory 31 H 24 19 Rate Blood Pressure 194/63 H 194/74 H 196/71 H O2 Saturation 93 93 93 Oxygen O2 Source [] Room air O2 Source Room air - EKG (time done) 1134 Rate: Rate (enter#) (65) Rhythm: Atrial fibrillation, Paced - Labs Labs: Laboratory Tests 01/03/18 01/03/18 01/03/18 11:58 11:58 11:58 WBC 10.5 RBC 5.64 H Hgb 16.2 H Hct 49.4 H MCV 87.6 MCH 28.7 MCHC 32.7 RDW 15.7 H Plt Count 237 MPV 8.6 Neut # (Auto) 8.9 H Lymph # (Auto) 1.2 L [place] # (Auto) 0.3 Eos # (Auto) 0.0 Baso # (Auto) 0.1 Absolute Nucleated RBC 0.00 Nucleated RBC % 0.0 Sodium 137 Potassium 3.6 Chloride 99 L Carbon Dioxide 26 Anion Gap 12.0 BUN 29 H Creatinine 2.0 H Estimated GFR (MDRD) 25 L Glucose 233 H Calcium 8.6 Total Bilirubin 0.9 AST 35 ALT 21 Alkaline Phosphatase 115 Total Protein 7.0 Albumin 2.5 L Globulin 4.5 H Albumin/Globulin Ratio 0.6 L Lipase 19 L TSH 3.34 Urine Color Urine Clarity Urine pH Ur Specific [place] Urine Protein Urine Glucose (UA) Urine Ketones Urine Occult Blood Urine Nitrite Urine Bilirubin Urine Urobilinogen Ur Leukocyte Esterase Urine RBC Urine WBC Urine WBC Clumps Ur Squamous Epith Cells Urine Bacteria Ur Microscopic Review Urine Culture Comments Salicylates < 6.0 Urine Opiates Screen Ur Oxycodone Screen Urine Methadone Screen Ur Propoxyphene Screen Acetaminophen < 10 L Ur Barbiturates Screen Ur Tricyclics Screen Ur Phencyclidine Scrn Ur Amphetamine Screen U Methamphetamines Scrn U Benzodiazepines Scrn Urine Cocaine Screen U Cannabinoids Screen Ethyl Alcohol < 5.0 01/03/18 13:08 WBC RBC Hgb Hct MCV MCH MCHC RDW Plt Count MPV Neut # (Auto) Lymph # (Auto) [place] # (Auto) Eos # (Auto) Baso # (Auto) Absolute Nucleated RBC Nucleated RBC % Sodium Potassium Chloride Carbon Dioxide Anion Gap BUN Creatinine Estimated GFR (MDRD) Glucose Calcium Total Bilirubin AST ALT Alkaline Phosphatase Total Protein Albumin Globulin Albumin/Globulin Ratio Lipase TSH Urine Color LIGHT YELLOW Urine Clarity CLOUDY Urine pH 7.0 Ur Specific [place] 1.015 Urine Protein >=300 H Urine Glucose (UA) 500 H Urine Ketones 15 H Urine Occult Blood MODERATE H Urine Nitrite NEGATIVE Urine Bilirubin NEGATIVE Urine Urobilinogen 0.2 (NORMAL) Ur Leukocyte Esterase TRACE H Urine RBC 0-5 Urine WBC >25 H Urine WBC Clumps PRESENT Ur Squamous Epith Cells MANY Squamous H Urine Bacteria Many H Ur Microscopic Review INDICATED Urine Culture Comments NOT INDICATED Salicylates Urine Opiates Screen NEGATIVE Ur Oxycodone Screen NEGATIVE Urine Methadone Screen NEGATIVE Ur Propoxyphene Screen NEGATIVE Acetaminophen Ur Barbiturates Screen NEGATIVE Ur Tricyclics Screen NEGATIVE Ur Phencyclidine Scrn NEGATIVE Ur Amphetamine Screen NEGATIVE U Methamphetamines Scrn NEGATIVE U Benzodiazepines Scrn NEGATIVE Urine Cocaine Screen NEGATIVE U Cannabinoids Screen NEGATIVE Ethyl Alcohol - Rads (name of study) Ct Head Radiology: EMP read contemporaneously (Atrophy and chronic changes including an old right parietal stroke without evidence of acute disease.) PD MEDICAL DECISION MAKING - ED course ED course: This is a 67-year-old woman with history of A. fib not on anticoagulation. She has a pacemaker and other comorbidities including diabetes and hypertension. She was seen immediately. Initial head CT was negative. Sent for angio. Case discussed by phone with Dr. Kira Badillo, neurology at [facility] and recommended activating code IR. Jeffries was mobilized. She accepted the patient in transfer. Cobras were completed. Started on a Cardene drip for persistent systolic blood pressures near 234 goal of about 200 allowing permissive hypertension. She is not a TPA candidate given time course much greater than 4 hours, high stroke scale. About 1:05 PM her son arrived. We discussed the case. He very much wanted her to go to [facility]. Dr. Badillo was updated. She had reviewed the CT angios with neurology at that point and felt like she had a right MCA clot. We thanked her and called [facility]. Spoke at length with Dr Ferrer at [facility], CTA and exam do not aleisha. ?PRES? Accepts in xfer and cobras updated. - Critical Care Time(min): 45 Time Includes: Direct patient care, Review records, Reassess patient, Document care, Coordinate care, Medical consult, Family consult for tx dec Data interpretation: Labs Procedures included in critical care time: Peripheral IV Procedures excluded from critical care time: EKG - Sepsis Event Vital Signs: Vital Signs - 24 hr 01/03/18 01/03/18 01/03/18 11:31 12:58 13:03 Temperature 36.5 C Heart Rate 65 66 65 Respiratory 18 23 17 Rate Blood Pressure 221/107 H 227/108 H 177/78 H O2 Saturation 98 91 L 92 01/03/18 01/03/18 01/03/18 13:15 13:25 13:43 Temperature 37.3 C Heart Rate 65 65 65 Respiratory 31 H 24 19 Rate Blood Pressure 194/63 H 194/74 H 196/71 H O2 Saturation 93 93 93 Oxygen O2 Source [] Room air O2 Source Room air Departure - Departure Disposition: 02 Transfer Acute Care Hosp Clinical Impression: Cerebrovascular accident (CVA) Condition: Critical
--- NOTE | 2018-01-03 11:59 | CT Report ---
Reason: ALOC Procedure Date: 01/03/2018 Accession Number: [id number] / [id number] Procedure: CT - Head W/O CPT Code: FULL RESULT: EXAM: CT HEAD EXAM DATE: 01/03/2018 11:47 AM. CLINICAL HISTORY: ALOC. COMPARISON: 12/25/2016. TECHNIQUE: Multiaxial CT images were obtained from the foramen magnum to the vertex. Reformats: Coronal. IV contrast: None. In accordance with CT protocol optimization, one or more of the following dose reduction techniques were utilized for this exam: automated exposure control, adjustment of mA and/or KV based on patient size, or use of iterative reconstructive technique. FINDINGS: Parenchyma: No intraparenchymal hemorrhage. No evidence of mass, midline shift, or CT findings of acute infarction. Old right parietal infarction. Miller-white differentiation is distinct. Diffuse chronic microangiopathic white matter changes. Extraaxial Spaces: Normal for age. Small calcified left posterior parietal meningioma. No subdural or epidural collections. Ventricles: The ventricles and cortical sulci are enlarged, consistent with age-related tissue loss. Sinuses and orbits: Mild mucosal thickening in maxillary sinuses with small mucus retention cyst on the left. Otherwise unremarkable. Bones: Unremarkable. Other: None. IMPRESSION: Generalized age-related cortical atrophic and other chronic changes, including old right parietal infarction, without evidence of acute intracranial abnormality. RADIA
[2018-01-03 12:08] LABS: BASOPHILS # (AUTO) 0.1 10^3/uL (0.0-0.1); BASOPHILS % (AUTO) 0.7 %; EOSINOPHILS % (AUTO) 0.1 %; HGB - HEMOGLOBIN 16.2 g/dL (12.0-16.0); LYMPHOCYTES # (AUTO) 1.2 10^3/uL (1.5-3.5); LYMPHOCYTES % (AUTO) 11.7 %; MEAN CORPUSCULAR HEMOGLOBIN 28.7 pg (27.0-31.0); MEAN CORPUSCULAR HGB CONC 32.7 g/dL (32.0-36.0); MEAN CORPUSCULAR VOLUME 87.6 fL (81.0-99.0); MEAN PLATELET VOLUME 8.6 fL (7.9-10.8); MONOCYTES # (AUTO) 0.3 10^3/uL (0.0-1.0); NEUTROPHILS # (AUTO) 8.9 10^3/uL (1.5-6.6); NEUTROPHILS % (AUTO) 84.5 %; PLT - PLATELET COUNT 237 10^3/uL (130-450); RED BLOOD COUNT 5.64 10^6/uL (4.20-5.40); RED CELL DISTRIBUTION WIDTH 15.7 % (12.0-15.0); WHITE BLOOD COUNT 10.5 x10^3/uL (4.8-10.8)
[2018-01-03] MEDS ORDERED: IOPAMIDOL-300 100 ML VIAL ONE (12:11)
[2018-01-03] MEDS ORDERED: niCARdipine 20 MG/200 ML 20 MG/200 ML BAG IV STA (12:47)
[2018-01-03 12:48] LABS: ALBUMIN 2.5 g/dL (3.2-5.5); ALBUMIN/GLOBULIN RATIO 0.6 (1.0-2.2); ALKALINE PHOSPHATASE 115 IU/L (42-121); ALT ALANINE AMINOTRANSFERASE 21 IU/L (10-60); AST ASPARTATE AMINOTRANSFERASE 35 IU/L (10-42); BILIRUBIN,TOTAL 0.9 mg/dL (0.2-1.0); BUN - BLOOD UREA NITROGEN 29 mg/dL (6-20); CALCIUM 8.6 mg/dL (8.5-10.3); CARBON DIOXIDE - CO2 26 mmol/L (21-32); CHLORIDE 99 mmol/L (101-111); GFR - MDRD 25 (>89); GLUCOSE 233 mg/dL (70-100); LIPASE 19 U/L (22-51); SALICYLATE < 6.0 mg/dL; SODIUM 137 mmol/L (135-145)
[2018-01-03 12:49] LABS: ACETAMINOPHEN < 10 ug/mL (10-30)
--- NOTE | 2018-01-03 13:30 | CT Report ---
Reason: R side defecits Procedure Date: 01/03/2018 Accession Number: [id number] / [id number] Procedure: CT - Neck Angio CPT Code: FULL RESULT: EXAM: CT ANGIOGRAM NECK EXAM DATE: 01/03/2018 12:37 PM. CLINICAL HISTORY: 67-year-old woman with right-sided deficits. COMPARISON: HEAD W/O 01/03/2018 11:44 AM. TECHNIQUE: Routine axial helical imaging was performed from the skull base through the aortic arch. Reconstructions: Routine multiplanar 3D MIP reconstructions. IV Contrast: CE. Evaluation of arterial stenosis is based on a NASCET method of measurement. In accordance with CT protocol optimization, one or more of the following dose reduction techniques were utilized for this exam: automated exposure control, adjustment of mA and/or KV based on patient size, or use of iterative reconstructive technique. FINDINGS: AORTIC ARCH: Arch is patent and there is mild calcified athero-sclerotic plaque. 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 The right subclavian demonstrates arterial filling, consistent with collateralization and possibly at least in part from retrograde flow from the right vertebral artery. RIGHT: - Common and Internal Carotid: Patent without signficant stenosis. There is mild predominantly noncalcified atherosclerotic plaque at the bifurcation. stenosis by NASCET criteria: Less than 50%.. No evidence of dissection. No evidence of aneurysm along intracranial ICA. - External Carotid: Unremarkable. - Vertebral: Patent without significant stenosis. No evidence of dissection. LEFT: - Common and Internal Carotid: Patent without signficant stenosis. There is mild calcified atherosclerotic plaque at the bifurcation. Stenosis by NASCET criteria: 0%. No evidence of dissection. No evidence of aneurysm along intracranial ICA. - External Carotid: Unremarkable. - Vertebral: Patent without significant stenosis. No evidence of dissection. SOFT TISSUES AND BONES: Implantable electronic cardiac device is partially visualized. Visualized soft tissues are otherwise unremarkable. Lung apices are clear. No evidence of acute fracture or malalignment of the cervical spine, but degenerative changes are present. IMPRESSION: 1. Carotid and vertebral arteries are patent without significant stenosis or dissection. 2. 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 Flow is present distally, likely at least in part from the vertebral artery. Steal phenomenon is likely present, but unlikely to significantly affect the anterior circulation. Findings discussed with Dr. Christianson at 13:13 on 01/03/2018 RADIA
--- NOTE | 2018-01-03 13:35 | CT Report ---
Reason: R side defecits Procedure Date: 01/03/2018 Accession Number: [id number] / [id number] Procedure: CT - Head Angio CPT Code: FULL RESULT: EXAM: CT ANGIOGRAM HEAD. EXAM DATE: 01/03/2018 12:35 PM CLINICAL HISTORY: 67-year-old woman with right-sided deficits. COMPARISON: HEAD W/O 01/03/2018 11:44 AM. TECHNIQUE: - CT Scan Head: Using a multidetector scanner, axial images were acquired from the foramen magnum to the skull vertex following contrast administration. - CT Angiogram: Using a multidetector scanner, high-resolution axial images were acquired from the skull base through vertex following rapid infusion of intravenous contrast. Reformats: Multiplanar MIP reformats were reconstructed. Nascet criteria used for stenosis measurement. IV Contrast: 100 cc Isovue-300. In accordance with CT protocol optimization, one or more of the following dose reduction techniques were utilized for this exam: automated exposure control, adjustment of mA and/or KV based on patient size, or use of iterative reconstructive technique. FINDINGS: CTA HEAD: RIGHT: - Visualized Internal Carotid: Patent without significant stenosis. There is trace atherosclerotic plaque along the siphon. The ophthalmic artery origin is proximal to expected and there is a wide-mouthed, tapered origin, consistent with infundibulum or aneurysm. - Anterior Cerebral: Patent without significant stenosis or aneurysm. - Middle Cerebral: There is high-grade stenosis throughout most of the M1 segment with possible focal occlusion. Distal branches are opacified, but caliber is significantly smaller than the left. - Posterior Cerebral: Patent without significant stenosis or aneurysm. - Posterior Communicating: Not well seen. - Visualized Vertebral: Patent without significant stenosis or dissection. LEFT: - Visualized Internal Carotid: Patent without significant stenosis or aneurysm. There is mild atherosclerotic plaque along the siphon. - Anterior Cerebral: Patent without significant stenosis or aneurysm. - Middle Cerebral: Patent without significant stenosis or aneurysm. - Posterior Cerebral: Patent without significant stenosis or aneurysm. - Posterior Communicating: Patent. No aneurysm. - Visualized Vertebral: Patent without significant stenosis or dissection. CENTRAL: - Anterior Communicating: Patent. No aneurysm. - Basilar: Patent without significant stenosis, dissection, or aneurysm. POSTCONTRAST HEAD: No abnormal enhancement. Densely calcified mass along the left posterior superior sagittal sinus may enhance, but calcifications obscure evaluation. Please see separate noncontrast head CT for description of noncontrast findings. IMPRESSION: 1. High-grade stenosis throughout most of the right MCA M1 segment, likely with focal occlusion. Age is indeterminate, but appearance favors chronic over acute. Distal branches are attenuated, consistent with decreased flow. However, findings would not be expected to cause right-sided weakness. 2. The right ophthalmic artery origin is proximal to expected and there is a broad-based, tapered origin, likely reflecting infundibulum but aneurysm cannot be excluded. CRITICAL RESULT: The findings were discussed with Dr. Francois on 01/03/2018 at 13:00. RADIA
[2018-01-03 13:36] LABS: MUDS CUTOFF CONCENTRATIONS CUTOFF CONC BELOW:
[2018-01-03 13:39] LABS: BILIRUBIN,URINE NEGATIVE (NEGATIVE); GLUCOSE, URINE (UA) 500 mg/dL (NEGATIVE); KETONES,URINE (UA) 15 mg/dL (NEGATIVE); LEUKOCYTE ESTERASE, URINE TRACE (NEGATIVE); NITRITE,URINE NEGATIVE (NEGATIVE); OCCULT BLOOD,URINE MODERATE (NEGATIVE); PROTEIN,URINE >=300 mg/dL (NEGATIVE); UROBILINOGEN,URINE 0.2 (NORMAL) E.U./dL (NORMAL)
[2018-01-03 13:43] VITALS: BP 196/71
[2018-01-03 13:44] LABS: CLARITY,URINE CLOUDY (CLEAR)
[2018-01-03 13:45] LABS: BACTERIA,URINE Many /HPF (None Seen); RBC,URINE 0-5 /HPF (0-5); SQUAMOUS EPITHELIAL CELL,UR MANY Squamous (<= Few); WBC CLUMPS,URINE PRESENT
[2018-01-03 13:52] LABS: AMPHETAMINE SCREEN,URINE NEGATIVE (NEGATIVE); BENZODIAZEPINES SCREEN, URINE NEGATIVE (NEGATIVE); COCAINE SCREEN URINE NEGATIVE (NEGATIVE); METHAMPHETAMINES SCREEN, URINE NEGATIVE (NEGATIVE); OPIATE SCREEN, URINE NEGATIVE (NEGATIVE); OXYCODONE SCREEN, URINE NEGATIVE (NEGATIVE); PROPOXYPHENE SCREEN, URINE NEGATIVE (NEGATIVE)
[2018-01-03 13:53] LABS: METHADONE SCREEN, URINE NEGATIVE (NEGATIVE); TRICYCLIC ANTIDEPRESSANT,URINE NEGATIVE (NEGATIVE)
[2018-01-08] MEDS ORDERED: IOPAMIDOL-300 100 ML VIAL IVP ONE (07:37)
== END 2018-01-03 13:50 | disposition short-term general hospital (02) ==
LOC: EDUNIT# → ED 11:24
DX: I63.9 Cerebral infarction, unspecified (principal); I48.91 Unspecified atrial fibrillation; I77.1 Stricture of artery; I10 Essential (primary) hypertension; E11.9 Type 2 diabetes mellitus without complications; Z79.4 Long term (current) use of insulin; Z79.01 Long term (current) use of anticoagulants
CPT/HCPCS: 36415; 51702; 70450; 70496; 70498; 80053; 81001; 83690; 84443; 84484; 85025; 93005; 96374; 99285; Q9967; 80306; 80307; 80320; 80329; 81003; 87086

== ENCOUNTER → 2018-01-03 | Outpatient (CLI) | payer MEDICARE | END | disposition critical access hospital (66) | LOC: EMS 11:08 | PROVIDERS: ATTEND Surgery | DX: R41.0 Disorientation, unspecified (principal); R73.09 Other abnormal glucose; R51 Headache | CPT/HCPCS: A0425; A0429 ==

== ENCOUNTER 2018-01-31 08:48 | Outpatient (CLI) | payer MEDICARE, MEDICAID, OTHER ==
[2018-01-31 13:07] LABS: CALCIUM 8.8 mg/dL (8.5-10.3); CREATININE 1.7 mg/dL (0.4-1.0)
== END 2018-01-31 08:49 | disposition home or self-care (01) ==
LOC: LAB.N 08:48
PROVIDERS: ATTEND Family Medicine
DX: I63.9 Cerebral infarction, unspecified (principal); N17.0 Acute kidney failure with tubular necrosis
CPT/HCPCS: 36415; 80048

== ENCOUNTER 2018-03-20 17:30 | Emergency (ER) | payer MEDICARE, OTHER, MEDICAID ==
[2018-03-20 17:47] VITALS: BP 134/91
--- NOTE | 2018-03-20 18:16 | ED Physician Documentation ---
PD HPI UPPER EXT INJURY - Stated complaint Stated Complaint: LF WRIST BURN - Chief complaint Chief Complaint: Ext Problem - History obtained from History obtained from: Patient - History of Present Illness Location: Left, Wrist Type of injury: Burn (from hot tea, 10 day ago and is having slow healing and some crusting/scab that is green based. 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 : Renal insuffiency HEENT: Other Psych: None Musculoskeletal: Osteoarthritis Derm: None - Past Surgical History Past Surgical History: Yes - Present Medications Home Medications: Ambulatory Orders Medication Instructions Recorded Confirmed Apixaban [Eliquis] 5 mg PO BID 06/14/16 12/25/16 Atorvastatin Calcium 40 mg PO QPM 06/14/16 12/25/16 Carvedilol 25 mg PO BID 06/14/16 12/25/16 Chlorthalidone 25 mg PO BID 06/14/16 12/25/16 Insulin Glargine [Lantus Solostar] 60 units SUBQ DAILY 06/14/16 12/25/16 Losartan [Cozaar] 50 mg PO BID 06/14/16 12/25/16 Doxycycline Hyclate 100 mg PO BID #14 capsule 03/20/18 Furosemide 1 tab PO DAILY 03/20/18 03/20/18 Mupirocin 1 applic TP TID #15 g 03/20/18 diltiaZEM [Cardizem] 120 mg PO DAILY 03/20/18 03/20/18 - Allergies Allergies/Adverse Reactions: Allergies Allergy/AdvReac Type Severity Reaction Status Date / Time lisinopril AdvReac Intermediate Unknown Verified 03/20/18 17:43 naproxen AdvReac Rash Verified 03/20/18 17:43 - Social History Does the pt smoke?: No Smoking Status: Never smoker Does the pt have substance abuse?: No - Immunizations Immunizations are current?: No Immunizations: TDAP current <10years - POLST Patient has POLST: No PD ED PE NORMAL - Vitals Vital signs reviewed: Yes - General General: Alert and oriented X 3, No acute distress, Well developed/nourished - Cardiac Cardiac: RRR, No murmur - Respiratory Respiratory: Clear bilaterally - Abdomen Abdomen: Soft, Non tender - Derm Derm: Normal color, Warm and dry, Other (nail grown into nailbed corner. No flucances) - Neuro Neuro: Alert and oriented X 3, No motor deficit, No sensory deficit, Normal speech Results - Vitals Vitals: Oxygen O2 Source [With Activity] Room air O2 Source Room air Departure - Departure Disposition: Home, Self Care Clinical Impression: Wound infection Burn, wrist, second degree Qualifiers: Encounter type: initial encounter Laterality: left Qualified Code(s): T23.272A - Burn of second degree of left wrist, initial encounter Condition: Stable Record reviewed to determine appropriate education?: Yes Instructions: ED Burn Wound Check FU Infec Follow-Up: James Garcia MD [Primary Care Provider] - Prescriptions: Doxycycline Hyclate 100 mg PO BID #14 capsule Mupirocin 1 applic TP TID #15 g Comments: Cleanse wound with soap and water 2-3 times a day and apply mupirocin antibiotic ointment. Have a dressing over the most of the time we can have uncovered part of the time. The goal is to have it a little bit more moist and soften the scab in the center. It does have colored suggesting early infection so we will treat with doxycycline oral antibiotic as well. Recheck if not improving well over the next several days to week. Discharge Date/Time: 03/20/18 18:57
[2018-03-20] MEDS: DOXYCYCLINE 100 MG TABLET PO STA (18:53)
[2018-03-20] MEDS: MUPIROCIN 2% OINT 1 GM TOP STA (18:53)
== END 2018-03-20 18:57 | disposition home or self-care (01) ==
LOC: ED 17:30
DX: T23.27 Burn of second degree of wrist (principal); L08.9 Local infection of the skin and subcutaneous tissue, unspecified; X10.0XXA Contact with hot drinks, initial encounter; Y92.009 Unspecified place in unspecified non-institutional (private) residence as the place of occurrence of the external cause; I10 Essential (primary) hypertension; E11.9 Type 2 diabetes mellitus without complications; Z79.4 Long term (current) use of insulin
CPT/HCPCS: 99283; A9270

== ENCOUNTER 2018-03-21 09:52 | Outpatient (CLI) | payer MEDICARE, OTHER, MEDICAID ==
[2018-03-21 14:03] LABS: HEMOGLOBIN A1C % 8.3 % (4.6-6.2)
== END 2018-03-21 23:59 | disposition home or self-care (01) ==
LOC: LAB.N 09:52
PROVIDERS: ATTEND Family Medicine
DX: E11.65 Type 2 diabetes mellitus with hyperglycemia (principal)
CPT/HCPCS: 36415; 83036

== ENCOUNTER 2018-06-21 08:00 | Outpatient (CLI) | payer MEDICARE, OTHER, MEDICAID ==
[2018-06-21 12:58] LABS: BASOPHILS # (AUTO) 0.1 10^3/uL (0.0-0.1); BASOPHILS % (AUTO) 0.8 %; EOSINOPHILS # (AUTO) 0.2 10^3/uL (0.0-0.7); HGB - HEMOGLOBIN 13.9 g/dL (12.0-16.0); LYMPHOCYTES # (AUTO) 3.3 10^3/uL (1.5-3.5); LYMPHOCYTES % (AUTO) 38.2 %; MEAN CORPUSCULAR HEMOGLOBIN 29.7 pg (27.0-31.0); MEAN CORPUSCULAR HGB CONC 32.9 g/dL (32.0-36.0); MEAN CORPUSCULAR VOLUME 90.3 fL (81.0-99.0); MEAN PLATELET VOLUME 9.1 fL (7.9-10.8); MONOCYTES # (AUTO) 0.5 10^3/uL (0.0-1.0); NEUTROPHILS # (AUTO) 4.5 10^3/uL (1.5-6.6); PLT - PLATELET COUNT 267 10^3/uL (130-450); RED BLOOD COUNT 4.67 10^6/uL (4.20-5.40); RED CELL DISTRIBUTION WIDTH 13.4 % (12.0-15.0); WHITE BLOOD COUNT 8.6 x10^3/uL (4.8-10.8)
[2018-06-21 13:31] LABS: ALBUMIN 3.3 g/dL (3.2-5.5); ALBUMIN/GLOBULIN RATIO 0.7 (1.0-2.2); ALKALINE PHOSPHATASE 75 IU/L (42-121); ALT ALANINE AMINOTRANSFERASE 12 IU/L (10-60); AST ASPARTATE AMINOTRANSFERASE 19 IU/L (10-42); BILIRUBIN,TOTAL 0.8 mg/dL (0.2-1.0); BUN - BLOOD UREA NITROGEN 57 mg/dL (6-20); CHOL/HDL RATIO 4.7 (<4.4); CHOLESTEROL 145 mg/dL; GFR - MDRD 25 (>89); HDL CHOLESTEROL 31 mg/dL; LDL CHOLESTEROL,CALCULATED 77 mg/dL; LDL/HDL RATIO 2.5 (<4.4); TOTAL PROTEIN 7.9 g/dL (6.7-8.2); VLDL CHOLESTEROL 37 mg/dL
[2018-06-21 13:55] LABS: CALCIUM 9.3 mg/dL (8.5-10.3); CARBON DIOXIDE - CO2 25 mmol/L (21-32); CHLORIDE 103 mmol/L (101-111); GLUCOSE 150 mg/dL (70-100); SODIUM 139 mmol/L (135-145)
[2018-06-21 14:55] LABS: HB2 TOTAL 15.2 g/dL; HEMOGLOBIN A1C 0.97 g/dL
[2018-06-21 16:31] LABS: MICROALBUMIN,URINE 553.6 mg/dL (0-300.0)
[2018-06-21 16:32] LABS: CREATININE,URINE 133.3 mg/dL
== END 2018-06-21 23:59 | disposition home or self-care (01) ==
LOC: LAB.N 08:00
PROVIDERS: ATTEND Nurse Practitioner
DX: E11.9 Type 2 diabetes mellitus without complications (principal); I10 Essential (primary) hypertension
CPT/HCPCS: 36415; 80053; 80061; 82043; 82570; 83036; 83721; 84443; 85025

== ENCOUNTER 2018-08-12 12:52 | Outpatient (CLI) | payer MEDICARE, OTHER | END 2018-08-12 12:53 | disposition home or self-care (01) | LOC: SC 12:52 | PROVIDERS: ATTEND Internal Medicine Pulmonary Disease | DX: G47.10 Hypersomnia, unspecified (principal); R06.81 Apnea, not elsewhere classified; G47.8 Other sleep disorders; R06.83 Snoring; R41.89 Other symptoms and signs involving cognitive functions and awareness; E66.9 Obesity, unspecified; Z68.31 Body mass index [BMI] 31.0-31.9, adult | CPT/HCPCS: 99203; G0463; 99212 ==

== ENCOUNTER 2018-09-08 19:17 | Outpatient (CLI) | payer MEDICARE, OTHER, MEDICAID | END 2018-09-08 19:18 | disposition home or self-care (01) | LOC: SC 19:17 | PROVIDERS: ATTEND Internal Medicine Pulmonary Disease | DX: G47.10 Hypersomnia, unspecified (principal) | CPT/HCPCS: 95810 ==

== ENCOUNTER 2018-09-24 08:22 | Outpatient (CLI) | payer MEDICARE, OTHER | END 2018-09-24 08:23 | disposition home or self-care (01) | LOC: SC 08:22 | PROVIDERS: ATTEND Internal Medicine Pulmonary Disease | DX: Z53.9 Procedure and treatment not carried out, unspecified reason (principal) ==

== ENCOUNTER 2019-11-18 08:00 | Outpatient (CLI) | payer MEDICARE, OTHER ==
[2019-11-18 12:25] LABS: ALBUMIN 3.4 g/dL (3.2-5.5); ALBUMIN/GLOBULIN RATIO 0.8 (1.0-2.2); BILIRUBIN,TOTAL 0.8 mg/dL (0.2-1.0); CREATININE 2.4 mg/dL (0.4-1.0); TOTAL PROTEIN 7.8 g/dL (6.7-8.2)
[2019-11-18 12:51] LABS: HB2 TOTAL 13.8 g/dL; HEMOGLOBIN A1C 0.83 g/dL; HEMOGLOBIN A1C % 7.7 % (4.6-6.2)
[2019-11-19 14:27] LABS: BILIRUBIN,URINE NEGATIVE (NEGATIVE); GLUCOSE, URINE (UA) 100 mg/dL (NEGATIVE); KETONES,URINE (UA) NEGATIVE (NEGATIVE); LEUKOCYTE ESTERASE, URINE NEGATIVE (NEGATIVE); NITRITE,URINE NEGATIVE (NEGATIVE); OCCULT BLOOD,URINE NEGATIVE (NEGATIVE); PH,URINE 5.5 PH (5.0-7.5); PROTEIN,URINE 100 mg/dL (NEGATIVE); UROBILINOGEN,URINE 0.2 (NORMAL) E.U./dL (NORMAL)
[2019-11-19 14:45] LABS: BACTERIA,URINE Rare /HPF (None Seen); CLARITY,URINE CLEAR (CLEAR); RBC,URINE None Seen /HPF (0-5); SQUAMOUS EPITHELIAL CELL,UR MOD Squamous (<= Few)
[2019-11-19 14:47] LABS: CREATININE,URINE 52.9 mg/dL
== END 2019-11-18 23:59 | disposition home or self-care (01) ==
LOC: LAB.WCP 08:00
PROVIDERS: ATTEND Family Medicine
DX: E11.22 Type 2 diabetes mellitus with diabetic chronic kidney disease (principal); N18.4 Chronic kidney disease, stage 4 (severe); Z79.4 Long term (current) use of insulin
CPT/HCPCS: 36415; 80053; 81001; 82570; 83036; 84300

== ENCOUNTER 2019-12-03 17:57 | Outpatient (CLI) | payer OTHER ==
--- NOTE | 2019-12-04 17:29 | Ultrasound Report ---
PROCEDURE: Retroperitoneal INDICATIONS: KIDNEY DISEAS,CHRONIC STAGE IV TECHNIQUE: Real-time scanning was performed of the retroperitoneal organs, with image documentation. COMPARISON: None. FINDINGS: Kidneys: Kidneys demonstrate atrophy. Right kidney measures 9.7 cm long; left kidney measures 9.0 c m long. Right renal cortical thickness is 1.2 cm; left renal cortical thickness is 1.1 cm. No solid masses, hydronephrosis, or nephrolithiasis. Bladder: Prevoid volume 94 cc. Postvoid residual 0 cc. No bladder masses are identified. Ureteral jet s are not identified. IMPRESSION: Renal atrophy. No obstruction. Reviewed by: Janell Vance MD on 12/04/2019 5:28 PM PDT Approved by: Janell Vance MD on 12/04/2019 5:28 PM PDT Station ID: [id number]
== END 2019-12-03 17:58 | disposition home or self-care (01) ==
LOC: DI 17:57
PROVIDERS: ATTEND Family Medicine
DX: N18.4 Chronic kidney disease, stage 4 (severe) (principal)
CPT/HCPCS: 76770

== ENCOUNTER 2020-01-22 08:56 | Outpatient (CLI) | payer MEDICARE, OTHER ==
[2020-01-22 09:23] LABS: HGB - HEMOGLOBIN 13.8 g/dL (12.0-16.0); MEAN CORPUSCULAR HEMOGLOBIN 29.6 pg (27.0-31.0); MEAN CORPUSCULAR HGB CONC 32.3 g/dL (32.0-36.0); MEAN CORPUSCULAR VOLUME 91.6 fL (81.0-99.0); MEAN PLATELET VOLUME 10.7 fL (7.9-10.8); RED BLOOD COUNT 4.66 10^6/uL (4.20-5.40); RED CELL DISTRIBUTION WIDTH 13.3 % (12.0-15.0); WHITE BLOOD COUNT 7.5 x10^3/uL (4.8-10.8)
[2020-01-22 09:44] LABS: CALCIUM 8.8 mg/dL (8.5-10.3); CREATININE 2.8 mg/dL (0.4-1.0)
[2020-01-22 10:03] LABS: CREATININE,URINE 111.3 mg/dL; PROTEIN/CREATININE RATIO,URINE 2.3 (<=0.2)
== END 2020-01-22 08:57 | disposition home or self-care (01) ==
LOC: LAB 08:56
PROVIDERS: ATTEND Internal Medicine Nephrology
DX: N05.9 Unspecified nephritic syndrome with unspecified morphologic changes (principal); D70.9 Neutropenia, unspecified; D63.1 Anemia in chronic kidney disease; R80.9 Proteinuria, unspecified
CPT/HCPCS: 36415; 80048; 82570; 84156; 85027

== ENCOUNTER 2020-02-11 09:24 | Outpatient (CLI) | payer MEDICARE, OTHER ==
[2020-02-11 09:51] LABS: BASOPHILS # (AUTO) 0.1 10^3/uL (0.0-0.1); BASOPHILS % (AUTO) 0.7 %; EOSINOPHILS # (AUTO) 0.1 10^3/uL (0.0-0.7); EOSINOPHILS % (AUTO) 1.7 %; HGB - HEMOGLOBIN 14.5 g/dL (12.0-16.0); LYMPHOCYTES # (AUTO) 2.2 10^3/uL (1.5-3.5); LYMPHOCYTES % (AUTO) 26.8 %; MEAN CORPUSCULAR HEMOGLOBIN 29.2 pg (27.0-31.0); MEAN CORPUSCULAR HGB CONC 32.4 g/dL (32.0-36.0); MEAN CORPUSCULAR VOLUME 90.1 fL (81.0-99.0); MEAN PLATELET VOLUME 10.8 fL (7.9-10.8); MONOCYTES # (AUTO) 0.4 10^3/uL (0.0-1.0); MONOCYTES % (AUTO) 4.7 %; NEUTROPHILS # (AUTO) 5.5 10^3/uL (1.5-6.6); NEUTROPHILS % (AUTO) 65.7 %; PLT - PLATELET COUNT 188 10^3/uL (130-450); RED BLOOD COUNT 4.96 10^6/uL (4.20-5.40); RED CELL DISTRIBUTION WIDTH 13.4 % (12.0-15.0); WHITE BLOOD COUNT 8.3 x10^3/uL (4.8-10.8)
[2020-02-11 10:09] LABS: ALBUMIN 3.5 g/dL (3.2-5.5); ALBUMIN/GLOBULIN RATIO 0.8 (1.0-2.2); ALKALINE PHOSPHATASE 57 IU/L (42-121); ALT ALANINE AMINOTRANSFERASE 17 IU/L (10-60); AST ASPARTATE AMINOTRANSFERASE 20 IU/L (10-42); BILIRUBIN,TOTAL 0.7 mg/dL (0.2-1.0); BUN - BLOOD UREA NITROGEN 60 mg/dL (6-20); CALCIUM 9.1 mg/dL (8.5-10.3); CARBON DIOXIDE - CO2 21 mmol/L (21-32); CHLORIDE 108 mmol/L (101-111); CHOL/HDL RATIO 4.3 (<4.4); CHOLESTEROL 191 mg/dL; GLUCOSE 124 mg/dL (70-100); HDL CHOLESTEROL 44 mg/dL; LDL CHOLESTEROL,CALCULATED 120 mg/dL; LDL/HDL RATIO 2.7 (<4.4); SODIUM 140 mmol/L (135-145); TOTAL PROTEIN 7.7 g/dL (6.7-8.2); VLDL CHOLESTEROL 27 mg/dL
[2020-02-11 10:56] LABS: CREATININE,URINE 87.1 mg/dL; MICROALBUM/CREATININE RATIO,UR 3174.5 ug/mg (<30.0); MICROALBUMIN,URINE 276.5 mg/dL (0-300.0)
[2020-02-11 12:06] LABS: HEMOGLOBIN A1c% 7.1 % (4.27-6.07)
[2020-02-13 13:57] LABS: ALBUMIN 3.5 g/dL (3.8-4.8); ALPHA 1 GLOBULIN 0.3 g/dL (0.2-0.3); BETA 1 GLOBULIN 0.3 g/dL (0.4-0.6); BETA 2 GLOBULIN 0.5 g/dL (0.2-0.5)
== END 2020-02-11 09:25 | disposition home or self-care (01) ==
LOC: LAB 09:24
PROVIDERS: ATTEND Family Medicine
DX: E11.22 Type 2 diabetes mellitus with diabetic chronic kidney disease (principal); N18.4 Chronic kidney disease, stage 4 (severe); Z79.4 Long term (current) use of insulin
CPT/HCPCS: 36415; 80053; 80061; 82043; 82570; 83036; 83721; 84155; 84165; 84443; 85025

== ENCOUNTER 2020-02-20 13:13 | Outpatient (CLI) | payer MEDICARE, OTHER ==
[2020-02-20 13:46] LABS: CALCIUM 9.2 mg/dL (8.5-10.3); CREATININE 2.2 mg/dL (0.4-1.0)
== END 2020-02-20 13:14 | disposition home or self-care (01) ==
LOC: LAB 13:13
PROVIDERS: ATTEND Internal Medicine Nephrology
DX: N05.9 Unspecified nephritic syndrome with unspecified morphologic changes (principal); I50.32 Chronic diastolic (congestive) heart failure; E83.30 Disorder of phosphorus metabolism, unspecified; N25.81 Secondary hyperparathyroidism of renal origin
CPT/HCPCS: 36415; 80048; 83880; 83970; 84100

== ENCOUNTER 2020-03-19 08:48 | Outpatient (CLI) | payer MEDICARE, OTHER ==
[2020-03-19 09:05] LABS: HGB - HEMOGLOBIN 13.4 g/dL (12.0-16.0); MEAN CORPUSCULAR HEMOGLOBIN 29.5 pg (27.0-31.0); MEAN CORPUSCULAR HGB CONC 32.2 g/dL (32.0-36.0); MEAN CORPUSCULAR VOLUME 91.6 fL (81.0-99.0); MEAN PLATELET VOLUME 10.1 fL (7.9-10.8); RED BLOOD COUNT 4.54 10^6/uL (4.20-5.40); WHITE BLOOD COUNT 8.5 x10^3/uL (4.8-10.8)
[2020-03-19 09:14] LABS: CALCIUM 8.8 mg/dL (8.5-10.3)
== END 2020-03-19 08:49 | disposition home or self-care (01) ==
LOC: LAB 08:48
PROVIDERS: ATTEND Internal Medicine Nephrology
DX: N05.9 Unspecified nephritic syndrome with unspecified morphologic changes (principal); D70.9 Neutropenia, unspecified; D63.1 Anemia in chronic kidney disease
CPT/HCPCS: 36415; 80048; 85027

== ENCOUNTER 2020-04-16 11:38 | Outpatient (CLI) | payer MEDICARE, OTHER ==
[2020-04-16 12:33] LABS: HGB - HEMOGLOBIN 13.3 g/dL (12.0-16.0); MEAN CORPUSCULAR HEMOGLOBIN 29.2 pg (27.0-31.0); MEAN CORPUSCULAR HGB CONC 31.6 g/dL (32.0-36.0); MEAN CORPUSCULAR VOLUME 92.5 fL (81.0-99.0); MEAN PLATELET VOLUME 10.8 fL (7.9-10.8); RED BLOOD COUNT 4.55 10^6/uL (4.20-5.40); RED CELL DISTRIBUTION WIDTH 13.6 % (12.0-15.0); WHITE BLOOD COUNT 7.5 x10^3/uL (4.8-10.8)
[2020-04-16 12:46] LABS: CALCIUM 8.5 mg/dL (8.5-10.3); CREATININE 2.4 mg/dL (0.4-1.0)
--- OUTSIDE RECORDS SUMMARY | 2020-04-21 01:37 | EXTERNAL MEDICAL SUMMARY RPT | Continuity of Care Document ---
:1950 Demographics Phone Unavailable Preferred Language Gibraltarian Marital Status Unknown Latter-Day Affiliation Unknown Race Unknown Ethnic Group Unknown Author Organization [facility] Address [address] [place] [address] Phone Care Team Providers Name Role Phone DO Unavailable Unavailable Scheidt Unavailable Unavailable Problems date description facility 2020-01-22 08:56 NEUTROPENIA, UNSPECIFIED [facility] 2020-02-05 00:00:00 MICROALBUMIN/CREAT RATIO [facility] 2020-02-05 00:00:00 TSH WITH REFLEX TO FT4 [facility] 2020-02-05 00:00:00 COMPREHENSIVE METABOLIC PANEL [facility] 2020-02-05 00:00:00 LIPID SCREEN, FASTING [facility] 2020-02-05 00:00:00 HGBA1C [facility] 2020-02-05 00:00:00 Protein electrophoresis, serum formerly [facility] 2020-02-05 00:00:00 CBC W/Diff/Plt [facility] 2020-02-11 09:24 TYPE 2 DIABETES MELLITUS [facility] WITHOUT COMPLICATIONS 2020-02-11 09:24 CHRONIC KIDNEY DISEASE, STAGE 4 [facility] (SEVERE) 2020-02-18 00:00:00 Health-related behavior [facility] 2020-02-18 00:00:00 Tobacco use and exposure [facility] 2020-02-18 00:00:00 Exercise [facility] 2020-02-18 00:00:00 Details of drug misuse behavior [facility] 2020-02-18 00:00:00 Alcohol use [facility] 2020-02-18 00:00:00 Former smoker [facility] 2020-02-20 13:13 CHRONIC DIASTOLIC (CONGESTIVE) [facility] HEART FAILURE 2020-03-19 08:48 UNSP NEPHRITIC SYNDROME WITH [facility] UNSPECIFIED MORPHOLOGIC CHANGES 2020-04-16 11:38 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 l[facility] BEE STING [facility]IT [facility] Medications date description facility 2020-02-18 00:00:00 [facility] 2020-02-18 00:00:00 null [facility] 2020-02-18 00:00:00 null [facility] 2020-02-18 00:00:[address] [facility] 2020-02-18 00:00[facility] 2020-02-18 00:00:[address] [facility] Procedures date description facility 2020-02-05 00:00:00 MICROALBUMIN/CREAT RATIO [facility] date description facility 2020-02-05 00:00:00 TSH WITH REFLEX TO FT4 [facility] date description facility 2020-02-05 00:00:00 COMPREHENSIVE METABOLIC PANEL [facility] date description facility 2020-02-05 00:00:00 LIPID SCREEN, FASTING [facility] P rimary [facility] date description facility 2020-02-05 00:00:[address] [facility] date description facility 2020-02-05 00:00:00 Protein electrophoresis, serum [facility] date description facility 2020-02-05 00:00:00 CBC W/Diff/Plt [facility] date description facility 2020-02-05 00:00:00 [facility] date description facility 2020-02-18 00:00:00 First Vx - Ix admin for [facility] Medicare patients [facility] date description facility 2020-02-18 00:00:00 [facility] Results Social History date description facility 2020-02-18 00:00:[address] [facility] Social History date description facility 2020-02-18 00:00:[address] [facility] date description facility [phone]
== END 2020-04-16 11:39 | disposition home or self-care (01) ==
LOC: LAB 11:38
PROVIDERS: ATTEND Internal Medicine Nephrology
DX: N05.9 Unspecified nephritic syndrome with unspecified morphologic changes (principal); D70.9 Neutropenia, unspecified; D63.1 Anemia in chronic kidney disease
CPT/HCPCS: 36415; 80048; 85027

== ENCOUNTER 2020-05-28 09:20 | Outpatient (CLI) | payer MEDICARE, OTHER ==
--- NOTE | 2020-05-28 10:04 | SLEEP CARE CONSULTATION ---
Information from patient questionnaire entered by Vane Guzman. I have reviewed and concur with the information entered by Vane Guzman. This document represents the service I personally performed and the decisions made by , Mine Thakkar ARNP. History of Present Illness Service Date and Time: 05/28/2020 0920 Previous diagnosis: Moderate, Obstructive Sleep Apnea-Hypopnea Syndrome AHI: 26.7 (in 2018) Reason for follow up: annual (last seen 09/2018, restart process) Prior sleep studies: Yes Year and Where: 2019 - Located within [facility] Sleep Type of Sleep Study: Polysomnography HPI additional information: QI ESCOBEDO was diagnosed to have moderate, AHI 26.7, obstructive sleep apnea- hypopnea syndrome and comes in today with daughter in law for annual follow-up. She moved into her son/daughter in [facility] house in October 2019. They are trying to get her medical care organized and she is not sleeping well during the night. Subjective Initial [place] Sleepiness Scale score: 19 (in 2019) Current [place] Sleepiness Scale score: 7 Allergies and Home Medications Drug allergies reviewed: Yes (lisinopril, naproxen) Home medication list reviewed: Yes Allergy and home medication list: Chlorthalidone Atorvastatin Losartan Eliquis Carvedilol Diltiazem Doxazosin Lantus Humalog Melatonin Review of Systems Review of systems same as previous: Yes (no new health issues) Cardiovascular: reports: high blood pressure Physical Exam Blood Pressure: 135/79 (taken at home) Heart Rate: 60 O2 Saturation: 95 Height: 5 ft 1 in Weight: 167 lb Body Mass Index: 31.5 BMI Classification: Obese Impression and Plan 1. Suspected Obstructive Sleep Apnea-Hypopnea Syndrome, as previously diagnosed and suggested by continuing history of loud and irregular snoring, observed cessation of breath while asleep, morning headache, frequent awakening during the night, unrefreshed sleep, cognitive impairment, and excessive daytime sleepiness. Patient last sleep study was suboptimal and it was suggested that she have a sleep aid for in lab sleep study due to insomnia during previous study. I offered a one time dose of Ambien 5 mg and daughter in law will check with her renal doctor due to her chronic renal disease. I recommend proceeding to polysomnography to confirm the diagnosis and to assess severity. If the p atient has significant sleep disordered breathing, a manual CPAP titration study will also be performed to find the optimal treatment pressure. I informed the patient of what the sleep studies involve and after some discussion, obtained agreement to proceed. The pathophysiology of obstructive sleep apnea-hypopnea syndrome was discussed with the patient and health risks of cardiovascular and cerebrovascular disease if not treated. Patient agreed to plan. * Schedule polysomnography +- manual CPAP titration study and return in 1-2 weeks after the study to discuss result and initiate therapy. * 5 mg Zolpidem for night of in lab study only, not to be used for HST if this is what is authorized by insurance * Avoid sedative and muscle relaxant around bedtime * Attempt to lose weight as able. * Review instructions provided by trained office staff on how to prepare for the sleep study. * Return for follow-up after sleep study completed. Counseling Topics: Weight loss health impact Visit Type: In Office Other Participants: Other (daughter in law) Time Spent with Patient (minutes): 26 Provider Statement: I spent 100% of the Face to Face Visit with the patient with greater than 50% spent counseling the patient and coordination of care.
[2020-05-28 10:05] VITALS: BP 135/79
== END 2020-05-28 09:21 | disposition home or self-care (01) ==
LOC: SC 09:20
PROVIDERS: ATTEND Nurse Practitioner Family
DX: G47.33 Obstructive sleep apnea (adult) (pediatric) (principal); E66.9 Obesity, unspecified; Z68.31 Body mass index [BMI] 31.0-31.9, adult
CPT/HCPCS: 99213; G0463; 99212

== ENCOUNTER 2020-08-23 19:16 | Emergency (ER) | payer MEDICARE, OTHER ==
[2020-08-23 20:48] LABS: BILIRUBIN,URINE NEGATIVE (NEGATIVE); GLUCOSE, URINE (UA) NEGATIVE (NEGATIVE); KETONES,URINE (UA) NEGATIVE (NEGATIVE); LEUKOCYTE ESTERASE, URINE NEGATIVE (NEGATIVE); NITRITE,URINE NEGATIVE (NEGATIVE); OCCULT BLOOD,URINE TRACE-INTA (NEGATIVE); PH,URINE 7.5 PH (5.0-7.5); PROTEIN,URINE 100 mg/dL (NEGATIVE); UROBILINOGEN,URINE 0.2 (NORMAL) E.U./dL (NORMAL)
[2020-08-23 20:50] LABS: CLARITY,URINE CLOUDY (CLEAR)
[2020-08-23 21:04] LABS: AMORPHOUS SEDIMENT,UR Few /LPF; BACTERIA,URINE Few /HPF (None Seen); RBC,URINE 0-5 /HPF (0-5); SQUAMOUS EPITHELIAL CELL,UR FEW Squamous (<= Few)
[2020-08-23] MEDS ORDERED: cephALEXin 250 MG CAPSULE PO STA (21:10)
--- NOTE | 2020-08-23 21:10 | ED Physician Documentation ---
PD HPI FEMALE - Stated complaint Stated Complaint: FREQUENT URINE, DIALYSIS - Chief complaint Chief Complaint: UTI - History obtained from History obtained from: Patient, Family - History of Present Illness Timing - onset: Today Pain level max: 0 Pain level max: 0 Associated symptoms: Urinary frequency Recently seen: Not recently seen - Additional information Additional information: 69-year-old female presents to the emergency department with her family. They state that she recently started dialysis, has dialysis Sunday, , Sunday. Urinary frequency today. This is occurred in the past when she has a bladder infection. No abdominal pain. No vomiting. No fevers. No chills. 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 : Renal insuffiency HEENT: Other Psych: None Musculoskeletal: Osteoarthritis Derm: None Other Past Medical History: CKD on Dialysis - Past Surgical History Past Surgical History: Yes - Present Medications Home Medications: Ambulatory Orders Medication Instructions Recorded Confirmed Insulin Glargine [Lantus Solostar] 60 units SUBQ DAILY 06/14/16 12/25/16 diltiaZEM [Cardizem] 120 mg PO DAILY 03/20/18 03/20/18 Calcium Acetate 667 mg PO BID 08/23/20 08/23/20 Diltiazem HCl [Cardizem LA] 120 mg PO DAILY 08/23/20 08/23/20 Hydralazine HCl 50 mg PO PRN PRN 08/23/20 08/23/20 Torsemide 20 mg PO BID 08/23/20 08/23/20 carvediloL [Coreg] 12.5 mg PO BID 08/23/20 08/23/20 cephALEXin [Keflex] 500 mg PO BID #14 08/23/20 - Allergies Allergies/Adverse Reactions: Allergies Allergy/AdvReac Type Severity Reaction Status Date / Time lisinopril AdvReac Intermediate Unknown Verified 03/20/18 17:43 naproxen AdvReac Rash Verified 03/20/18 17:43 - Social History Does the pt smoke?: No Smoking Status: Never smoker Does the pt drink ETOH?: Yes Does the pt have substance abuse?: No - Immunizations Immunizations are current?: Yes Immunizations: TDAP current <10years - POLST Patient has POLST: No PD ED PE NORMAL - Vitals Vital signs reviewed: Yes - General General: Alert and oriented X 3, No acute distress - HEENT HEENT: Moist mucous membranes - Neck Neck: Supple, no meningeal sign - Cardiac Cardiac: RRR, Strong equal pulses - Respiratory Respiratory: No respiratory distress, Clear bilaterally - Abdomen Abdomen: Soft, Non tender, Non distended - Back Back: No CVA TTP, No spinal TTP - Derm Derm: Warm and dry - Extremities Extremities: No edema, No calf tenderness / cord - Neuro Neuro: Alert and oriented X 3 Results - Vitals Vitals: Vital Signs - 24 hr 08/23/20 08/23/20 08/23/20 19:30 20:45 21:24 Temperature 36.2 C L 36.6 C 98.7 C H Heart Rate 60 59 L 60 Respiratory 14 16 18 Rate Blood Pressure 154/81 H 180/97 H 178/94 H O2 Saturation 100 99 99 Oxygen O2 Source [With Activity] Room air O2 Source Room air - Labs Labs: Laboratory Tests 08/23/20 20:42 Urine Color YELLOW Urine Clarity CLOUDY Urine pH 7.5 Ur Specific [place] 1.020 Urine Protein 100 H Urine Glucose (UA) NEGATIVE Urine Ketones NEGATIVE Urine Occult Blood TRACE-INTA Urine Nitrite NEGATIVE Urine Bilirubin NEGATIVE Urine Urobilinogen 0.2 (NORMAL) Ur Leukocyte Esterase NEGATIVE Urine RBC 0-5 Urine WBC 6-10 H Ur Squamous Epith Cells FEW Squamous Amorphous Sediment Few Urine Bacteria Few Ur Microscopic Review INDICATED Urine Culture Comments NOT INDICATED PD MEDICAL DECISION MAKING - ED course Complexity details: reviewed results, considered differential, d/w patient, d/w family ED course: Patient with a UTI. We will place on Keflex for home. Dosing was altered for dialysis. No evidence of pyelonephritis. Patient is well-appearing, nontoxic. No evidence of sepsis. Patient counseled regarding signs and symptoms for which I believe and urgent re-evaluation would be necessary. Patient with good understanding of and agreement to plan and is comfortable going home at this time This document was made in part using voice recognition software. While efforts are made to proofread this document, sound alike and grammatical errors may occur. Departure - Departure Disposition: 01 Home, Self Care Clinical Impression: UTI (urinary tract infection) Qualifiers: Urinary tract infection type: acute cystitis Hematuria presence: without hematuria Qualified Code(s): N30.00 - Acute cystitis without hematuria Condition: Good Instructions: ED UTI Cystitis Female Follow-Up: Kathryn Shipley DO [Primary Care Provider] - Prescriptions: cephALEXin [Keflex] 500 mg PO BID #14 Comments: Take all antibiotics until gone. Return if you worsen. Follow-up with your doctor for further care. Discharge Date/Time: 08/23/20 21:30
[2020-08-23 21:26] VITALS: BP 178/94
== END 2020-08-23 21:30 | disposition home or self-care (01) ==
LOC: ED 19:16
DX: N30.00 Acute cystitis without hematuria (principal); I12.9 Hypertensive chronic kidney disease with stage 1 through stage 4 chronic kidney disease, or unspecified chronic kidney disease; E11.22 Type 2 diabetes mellitus with diabetic chronic kidney disease; N18.9 Chronic kidney disease, unspecified; Z79.4 Long term (current) use of insulin; Z99.2 Dependence on renal dialysis
CPT/HCPCS: 81001; 99283; 99284; A9270; 81003; 87086

== ENCOUNTER 2020-08-25 08:48 | Outpatient (CLI) | payer MEDICARE, OTHER ==
[2020-08-25 09:33] LABS: BASOPHILS # (AUTO) 0.1 10^3/uL (0.0-0.1); BASOPHILS % (AUTO) 0.7 %; EOSINOPHILS # (AUTO) 0.1 10^3/uL (0.0-0.7); EOSINOPHILS % (AUTO) 1.2 %; HCT - HEMATOCRIT 38.9 % (37.0-47.0); LYMPHOCYTES # (AUTO) 2.1 10^3/uL (1.5-3.5); LYMPHOCYTES % (AUTO) 25.6 %; MEAN CORPUSCULAR HEMOGLOBIN 29.2 pg (27.0-31.0); MEAN CORPUSCULAR HGB CONC 30.8 g/dL (32.0-36.0); MEAN CORPUSCULAR VOLUME 94.6 fL (81.0-99.0); MEAN PLATELET VOLUME 10.6 fL (7.9-10.8); MONOCYTES # (AUTO) 0.5 10^3/uL (0.0-1.0); MONOCYTES % (AUTO) 6.5 %; NEUTROPHILS # (AUTO) 5.3 10^3/uL (1.5-6.6); NEUTROPHILS % (AUTO) 65.6 %; PLT - PLATELET COUNT 181 10^3/uL (130-450); RED BLOOD COUNT 4.11 10^6/uL (4.20-5.40); RED CELL DISTRIBUTION WIDTH 13.2 % (12.0-15.0)
[2020-08-25 09:38] LABS: CALCIUM 8.7 mg/dL (8.5-10.3); CREATININE 3.8 mg/dL (0.4-1.0); POTASSIUM 4.4 mmol/L (3.5-5.0)
== END 2020-08-25 08:49 | disposition home or self-care (01) ==
LOC: LAB 08:48
PROVIDERS: ATTEND Internal Medicine Nephrology
DX: N05.9 Unspecified nephritic syndrome with unspecified morphologic changes (principal); I50.32 Chronic diastolic (congestive) heart failure; D70.9 Neutropenia, unspecified; D63.1 Anemia in chronic kidney disease
CPT/HCPCS: 36415; 80048; 83880; 85025

== ENCOUNTER 2020-09-21 14:46 | Outpatient (CLI) | payer MEDICARE, OTHER | END 2020-09-21 14:47 | disposition critical access hospital (66) | LOC: EMS 14:46 | DX: S09.90XA Unspecified injury of head, initial encounter (principal); R42 Dizziness and giddiness; W19.XXXA Unspecified fall, initial encounter; Y92.003 Bedroom of unspecified non-institutional (private) residence as the place of occurrence of the external cause | CPT/HCPCS: A0425; A0429 ==

== ENCOUNTER 2020-09-21 14:58 | Emergency (ER) | payer MEDICARE, OTHER ==
[2020-09-21] MEDS ORDERED: INSULIN REGULAR HUMAN 300 UNIT/3 ML VIAL SUBQ ONE (15:09)
--- NOTE | 2020-09-21 15:15 | ED Physician Documentation ---
PD HPI HEAD INJURY - Stated complaint Stated Complaint: GLF - History obtained from History obtained from: Patient, EMS - History of Present Illness Mechanism of head injury: Fell (denies lightheaded nor syncope. She states she stumbled and fell and struck head on furniture, then fell to carpeted floor. Dazed few seconds. No LOC (daughter in next room and went in when hear the fall and patient was starting to get herself back up already). Lac scalp and patient on blood thinner) Where head injury occurred: Home (had gotten home from dialysis. No problems with the session.) Timing - onset: Today Location of injury: Left, Back Quality of pain: Aching Associated symptoms: No: LOC, AMS, Nausea / vomiting, Neck pain Contributing factors: Anticoagulated. No: Intoxicated Similar symptoms before: Other (weakness often after dialysis.) Recently seen: Clinic (dialysis today without problems.) Review of Systems Constitutional: denies: Fever, Chills Nose: denies: Rhinorrhea / runny nose, Congestion Throat: denies: Sore throat Cardiac: denies: Chest pain / pressure Respiratory: denies: Cough GI: denies: Abdominal Pain, Vomiting, Diarrhea, Bloody / black stool Neurologic: denies: Focal weakness PD PAST MEDICAL HISTORY - Past Medical History Cardiovascular: Hypertension, High cholesterol, Coronary artery disease, Murmur, Other Respiratory: None Neuro: CVA Endocrine/Autoimmune: Type 2 diabetes GI: None 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 : Renal insuffiency HEENT: Other Psych: None Musculoskeletal: Osteoarthritis Derm: None - Past Surgical History Past Surgical History: Yes - Present Medications Home Medications: Ambulatory Orders Medication Instructions Recorded Confirmed Insulin Glargine [Lantus Solostar] 60 units SUBQ DAILY 06/14/16 09/21/20 diltiaZEM [Cardizem] 120 mg PO DAILY 03/20/18 09/21/20 Calcium Acetate 667 mg PO BID 08/23/20 09/21/20 Diltiazem HCl [Cardizem LA] 120 mg PO DAILY 08/23/20 09/21/20 Torsemide 20 mg PO BID 08/23/20 09/21/20 carvediloL [Coreg] 12.5 mg PO BID 08/23/20 09/21/20 Apixaban [Eliquis] 2.5 mg PO BID 09/21/20 09/21/20 Atorvastatin [Lipitor] 40 mg PO DAILY 09/21/20 09/21/20 Losartan [Cozaar] 100 mg PO DAILY PM 09/21/20 09/21/20 - Allergies Allergies/Adverse Reactions: Allergies Allergy/AdvReac Type Severity Reaction Status Date / Time lisinopril AdvReac Intermediate Unknown Verified 09/21/20 15:17 naproxen AdvReac Rash Verified 09/21/20 15:17 - Social History Does the pt smoke?: No Smoking Status: Never smoker Does the pt drink ETOH?: Yes Does the pt have substance abuse?: No - Immunizations Immunizations are current?: Yes Immunizations: TDAP current <10years - POLST Patient has POLST: No PD ED PE NORMAL - Vitals Vital signs reviewed: Yes - General General: Alert and oriented X 3, Well developed/nourished - HEENT HEENT: Other (left lower occipital scalp with 2 cm lac with mild bleeding. No FB. slightly tender. ) - Neck Neck: Supple, no meningeal sign, No bony TTP, No adenopathy - Cardiac Cardiac: RRR, No murmur - Respiratory Respiratory: Clear bilaterally - Abdomen Abdomen: Soft, Non tender - Derm Derm: Normal color, Warm and dry - Neuro Neuro: Alert and oriented X 3, No motor deficit, Normal speech Results - Vitals Vitals: Vital Signs - 24 hr 09/21/20 09/21/20 09/21/20 15:05 15:41 16:11 Temperature 37.4 C Heart Rate 59 L 60 58 L Respiratory 18 18 18 Rate Blood Pressure 110/63 128/58 L 106/55 L O2 Saturation 99 100 100 09/21/20 16:30 Temperature 36.5 C Heart Rate 59 L Respiratory 18 Rate Blood Pressure 126/58 L O2 Saturation 100 Oxygen O2 Source [With Activity] Room air O2 Source Room air - Rads (name of study) head CT Radiology: Prelim report reviewed (no ICH nor acute process. ), See rad report Procedures - Laceration (location) occipital scalp Length in cm: 2 Wound type: Linear, Into subcut fat, Clean Neurovascular status: Sensory intact Anesthesia: Marcaine 0.5% Wound preparation: Irrigated copiously NS Skin layer closure: Pavel Other: Patient tolerated well, No complications, Tetanus UTD PD MEDICAL DECISION MAKING - ED course Complexity details: reviewed results, considered differential, d/w patient Departure - Departure Disposition: 01 Home, Self Care Clinical Impression: Anticoagulant long-term use Accidental fall Qualifiers: Encounter type: initial encounter Qualified Code(s): W19.XXXA - Unspecified fall, initial encounter Scalp laceration Qualifiers: Encounter type: initial encounter Qualified Code(s): S01.01XA - Laceration without foreign body of scalp, initial encounter Condition: Stable Record reviewed to determine appropriate education?: Yes Instructions: ED Laceration Scalp Stitch Or Stap Follow-Up: Kathryn Shipley DO [Primary Care Provider] - Comments: It is okay to wash and shower. Clean off the wound twice a day with soap and water, or peroxide and water. Apply some antibiotic ointment to it to keep it moist. Also to watch for signs of infection such as purulence, redness or increasing pain. Return to your primary care or the ER at the specified time for suture removal. Staple removal 7 or 8 days. Tylenol if needed for pains. Discharge Date/Time: 09/21/20 16:40
[2020-09-21] MEDS ORDERED: INSULIN REGULAR HUMAN 100 UNIT/1 ML 10 ML MDV SUBQ STA (15:19)
--- NOTE | 2020-09-21 15:33 | CT Report ---
PROCEDURE: HEAD WO INDICATIONS: head injury/fall, on blood thinner CONTRAST: None TECHNIQUE: 4.5 mm thick angled axial sections acquired from the foramen magnum to the vertex both before and aft er the administration of intravenous contrast. For radiation dose reduction, the following was used: automated exposure control, adjustment of mA and/or kV according to patient size. COMPARISON: 01/03/2018 FINDINGS: Image quality: Excellent. CSF spaces: Basal cisterns are patent. No extra-axial fluid collections. Ventricles are symmetric in size and shape. Small calcified meningioma in posterior left parietal region adjacent to midline i s again seen unchanged from prior study. Brain: No midline shift. No intracranial bleeds or masses. Old infarction in right parietal lobe is again seen with encephalomalacia. No abnormal intracranial enhancement. There is cerebral volume lo ss for age. There is periventricular white matter chronic small vessel ischemic change. There is in tracranial internal carotid artery atherosclerosis. Skull and face: Calvarium and visualized facial bones appear intact, without suspicious lesions. Sinuses: Visualized sinuses and mastoids are clear. IMPRESSION: 1. No CT evidence of acute intracranial pathology. 2. Diffuse atrophy and moderate white matter chronic small vessel ischemic changes. Old infarction in right parietal lobe with encephalomalacia. No significant changes from previous study. Reviewed by: Federico Cole MD on 09/21/2020 3:32 PM PDT Approved by: Federico Cole MD on 09/21/2020 3:32 PM PDT Station ID: [id number]
[2020-09-21 16:38] VITALS: BP 126/58
== END 2020-09-21 16:40 | disposition home or self-care (01) ==
LOC: EDUNIT# → ED 14:58 → SUPCPDRO 14:58 → ED 16:40
DX: S01.01XA Laceration without foreign body of scalp, initial encounter (principal); W01.190A Fall on same level from slipping, tripping and stumbling with subsequent striking against furniture, initial encounter; Y92.009 Unspecified place in unspecified non-institutional (private) residence as the place of occurrence of the external cause; I10 Essential (primary) hypertension; E11.29 Type 2 diabetes mellitus with other diabetic kidney complication; N28.9 Disorder of kidney and ureter, unspecified; Z79.4 Long term (current) use of insulin; Z99.2 Dependence on renal dialysis; Z79.01 Long term (current) use of anticoagulants
CPT/HCPCS: 12001; 36415; 70450; 99284; J1815

== ENCOUNTER 2020-10-04 22:10 | Emergency (ER) | payer MEDICARE, OTHER ==
[2020-10-04] MEDS ORDERED: SODIUM CHLORIDE 0.9% 500 ML IV STA (23:17)
[2020-10-04 23:25] LABS: BASOPHILS % (AUTO) 0.4 %; EOSINOPHILS # (AUTO) 0.1 10^3/uL (0.0-0.7); EOSINOPHILS % (AUTO) 0.7 %; HCT - HEMATOCRIT 33.6 % (37.0-47.0); HGB - HEMOGLOBIN 10.9 g/dL (12.0-16.0); LYMPHOCYTES # (AUTO) 1.8 10^3/uL (1.5-3.5); LYMPHOCYTES % (AUTO) 16.4 %; MEAN CORPUSCULAR HEMOGLOBIN 30.4 pg (27.0-31.0); MEAN CORPUSCULAR HGB CONC 32.4 g/dL (32.0-36.0); MEAN CORPUSCULAR VOLUME 93.6 fL (81.0-99.0); MEAN PLATELET VOLUME 9.9 fL (7.9-10.8); MONOCYTES # (AUTO) 0.7 10^3/uL (0.0-1.0); MONOCYTES % (AUTO) 6.7 %; NEUTROPHILS # (AUTO) 8.3 10^3/uL (1.5-6.6); NEUTROPHILS % (AUTO) 75.3 %; PLT - PLATELET COUNT 174 10^3/uL (130-450); RED BLOOD COUNT 3.59 10^6/uL (4.20-5.40); RED CELL DISTRIBUTION WIDTH 13.5 % (12.0-15.0)
[2020-10-05 00:03] LABS: ALBUMIN 3.6 g/dL (3.2-5.5); ALBUMIN/GLOBULIN RATIO 0.9 (1.0-2.2); BILIRUBIN,TOTAL 0.7 mg/dL (0.2-1.0); CALCIUM 8.7 mg/dL (8.5-10.3); POTASSIUM 4.7 mmol/L (3.5-5.0); TOTAL PROTEIN 7.4 g/dL (6.7-8.2)
--- NOTE | 2020-10-05 00:28 | ED Physician Documentation ---
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 : Renal insuffiency HEENT: Other Psych: None Musculoskeletal: Osteoarthritis Derm: None - Past Surgical History Past Surgical History: Yes - Present Medications Home Medications: Ambulatory Orders Medication Instructions Recorded Confirmed Insulin Glargine [Lantus Solostar] 60 units SUBQ DAILY 06/14/16 09/21/20 diltiaZEM [Cardizem] 120 mg PO DAILY 03/20/18 09/21/20 Calcium Acetate 667 mg PO BID 08/23/20 09/21/20 Diltiazem HCl [Cardizem LA] 120 mg PO DAILY 08/23/20 09/21/20 Torsemide 20 mg PO BID 08/23/20 09/21/20 carvediloL [Coreg] 12.5 mg PO BID 08/23/20 09/21/20 Apixaban [Eliquis] 2.5 mg PO BID 09/21/20 09/21/20 Atorvastatin [Lipitor] 40 mg PO DAILY 09/21/20 09/21/20 Losartan [Cozaar] 100 mg PO DAILY PM 09/21/20 09/21/20 - Allergies Allergies/Adverse Reactions: Allergies Allergy/AdvReac Type Severity Reaction Status Date / Time lisinopril AdvReac Intermediate Unknown Verified 10/04/20 22:25 naproxen AdvReac Rash Verified 10/04/20 22:25 - Social History Does the pt smoke?: No Smoking Status: Never smoker Does the pt drink ETOH?: Yes Does the pt have substance abuse?: No - Immunizations Immunizations are current?: Yes Immunizations: TDAP current <10years - POLST Patient has POLST: No Results - Vitals Vitals: Vital Signs - 24 hr 10/04/20 10/04/20 10/05/20 22:17 22:50 00:15 Temperature 37.0 C 36.8 C Heart Rate 59 L 60 60 Respiratory 18 19 16 Rate Blood Pressure 104/56 L 92/72 100/60 O2 Saturation 100 99 100 Oxygen O2 Source [With Activity] Room air O2 Source Room air - Labs Labs: Laboratory Tests 10/04/20 10/04/20 23:20 23:20 WBC 11.0 H RBC 3.59 L Hgb 10.9 L Hct 33.6 L MCV 93.6 MCH 30.4 MCHC 32.4 RDW 13.5 Plt Count 174 MPV 9.9 Neut # (Auto) 8.3 H Lymph # (Auto) 1.8 [place] # (Auto) 0.7 Eos # (Auto) 0.1 Baso # (Auto) 0.0 Absolute Nucleated RBC 0.00 Nucleated RBC % 0.0 Sodium 129 L Potassium 4.7 Chloride 90 L Carbon Dioxide 24 Anion Gap 15.0 H BUN 66 H Estimated GFR (MDRD) 6 L Glucose 303 H Calcium 8.7 Total Bilirubin 0.7 AST 25 ALT 16 Alkaline Phosphatase 64 Total Protein 7.4 Albumin 3.6 Globulin 3.8 Albumin/Globulin Ratio 0.9 L Lipase 19 L
[2020-10-05] MEDS ORDERED: INSULIN REGULAR HUMAN 100 UNIT/1 ML 10 ML MDV IVP STA (01:02)
[2020-10-05 01:10] VITALS: BP 119/63
--- NOTE | 2020-10-05 11:40 | XRAY Report ---
PROCEDURE: Chest 1 View X-Ray INDICATIONS: Chest pain TECHNIQUE: One view of the chest was acquired. COMPARISON: Chest x-ray 12/21/2016 FINDINGS: Surgical changes and devices: Right-sided dialysis catheter is present with distal tip projecting ov er the distal SVC/right atrial junction. Pacemaker is noted. Lungs and pleura: No pleural effusions or pneumothorax. Lungs are clear. Mediastinum: Mediastinal contours appear normal. Heart size is normal. Bones and chest wall: No suspicious bony lesions. Overlying soft tissues appear unremarkable. IMPRESSION: No acute pulmonary process. The above findings are concordant with preliminary report. Reviewed by: Janell Vance MD on 10/05/2020 11:39 AM PDT Approved by: Janell Vance MD on 10/05/2020 11:39 AM PDT Station ID: [id number]
--- NOTE | 2020-10-07 06:25 | ED Physician Documentation ---
History of Present Illness - Stated complaint Stated Complaint: LBP/WEAKNESS - Chief complaint Chief Complaint: Neuro - History obtained from History obtained from: Patient, Family - History of Present Illness Timing: Enter time (21:00), Today Pain level max: 0 Pain level now: 0 - Additonal information Additional information: per daughter (at bedside), patient has had mostly left-sided weakness since 9 PM today, onset while at home at rest. daughter says patient leans to left when trying to ambulate. no h/o similar symptoms. SBP had been 90s all day. daughter also says patient had been mildly confused earlier tonight, but this has resolved and that she is at baseline mentation. Review of Systems Constitutional: reports: Reviewed and negative Eyes: reports: Reviewed and negative Cardiac: reports: Reviewed and negative Respiratory: reports: Reviewed and negative GI: reports: Reviewed and negative : reports: Reviewed and negative Skin: reports: Reviewed and negative Musculoskeletal: reports: Reviewed and negative Neurologic: reports: Focal weakness, Altered mental status. 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 : Renal insuffiency HEENT: Other Psych: None Musculoskeletal: Osteoarthritis Derm: None - Past Surgical History Past Surgical History: Yes - Present Medications Home Medications: Ambulatory Orders Medication Instructions Recorded Confirmed Calcium Acetate 667 mg PO TID 08/23/20 10/05/20 Diltiazem HCl [Cardizem LA] 240 mg PO QPM 08/23/20 10/05/20 Torsemide 20 mg PO DAILY 08/23/20 10/05/20 carvediloL [Coreg] 12.5 mg PO BID 08/23/20 10/05/20 Apixaban [Eliquis] 2.5 mg PO BID 09/21/20 10/05/20 Atorvastatin [Lipitor] 40 mg PO DAILY 09/21/20 10/05/20 Losartan [Cozaar] 100 mg PO DAILY PM 09/21/20 10/05/20 Insulin Lispro [Humalog] 5 units SUBQ TIDWM 10/05/20 10/05/20 - Allergies Allergies/Adverse Reactions: Allergies Allergy/AdvReac Type Severity Reaction Status Date / Time lisinopril AdvReac Intermediate Unknown Verified 10/04/20 22:25 naproxen AdvReac Rash Verified 10/04/20 22:25 - Social History Does the pt smoke?: No Smoking Status: Never smoker Does the pt drink ETOH?: Yes Does the pt have substance abuse?: No - Immunizations Immunizations are current?: Yes Immunizations: TDAP current <10years - POLST Patient has POLST: No PD ED PE NORMAL - Vitals Vital signs reviewed: Yes - General General: Alert and oriented X 3, No acute distress, Well developed/nourished - HEENT HEENT: PERRL, EOMI, Moist mucous membranes - Neck Neck: Supple, no meningeal sign - Cardiac Cardiac: RRR, No murmur - Respiratory Respiratory: No respiratory distress, Clear bilaterally - Abdomen Abdomen: Soft, Non tender - Neuro Neuro: Alert and oriented X 3, sole polisher 2-12 intact, No motor deficit, No sensory deficit, Normal speech Eye Opening: Spontaneous Motor: Obeys Commands Verbal: Oriented GCS Score: 15 Results - Vitals Vitals: Oxygen O2 Source [With Activity] Room air O2 Source Room air - EKG (time done) No standard instances Rate: Rate (enter#) (60) Rhythm: Paced [place]: LAD Ischemia: Normal ST segments - Labs Labs: Laboratory Tests 10/04/20 10/04/20 10/04/20 23:20 23:20 23:20 WBC 11.0 H RBC 3.59 L Hgb 10.9 L Hct 33.6 L MCV 93.6 MCH 30.4 MCHC 32.4 RDW 13.5 Plt Count 174 MPV 9.9 Neut # (Auto) 8.3 H Lymph # (Auto) 1.8 [place] # (Auto) 0.7 Eos # (Auto) 0.1 Baso # (Auto) 0.0 Absolute Nucleated RBC 0.00 Nucleated RBC % 0.0 Sodium 129 L Potassium 4.7 Chloride 90 L Carbon Dioxide 24 Anion Gap 15.0 H BUN 66 H Creatinine 7.0 H* Estimated GFR (MDRD) 6 L Glucose 303 H POC Whole Bld Glucose Calcium 8.7 Total Bilirubin 0.7 AST 25 ALT 16 Alkaline Phosphatase 64 Troponin I High Sens 21.9 H* Total Protein 7.4 Albumin 3.6 Globulin 3.8 Albumin/Globulin Ratio 0.9 L Lipase 19 L 10/05/20 01:37 WBC RBC Hgb Hct MCV MCH MCHC RDW Plt Count MPV Neut # (Auto) Lymph # (Auto) [place] # (Auto) Eos # (Auto) Baso # (Auto) Absolute Nucleated RBC Nucleated RBC % Sodium Potassium Chloride Carbon Dioxide Anion Gap BUN Creatinine Estimated GFR (MDRD) Glucose POC Whole Bld Glucose 190 H Calcium Total Bilirubin AST ALT Alkaline Phosphatase Troponin I High Sens Total Protein Albumin Globulin Albumin/Globulin Ratio Lipase - Rads (name of study) cxr Radiology: Prelim report reviewed, See rad report PD MEDICAL DECISION MAKING - ED course Complexity details: reviewed results, re-evaluated patient, considered differential, d/w patient, d/w family ED course: daughter describes left-sided weakness and left-tilting gait x 9 PM, along with mild confusion. however, thus has all resolved by the time of this evaluation. she is AAOx3 and has full and equal strength on my exam. abnormalities on blood tests unlikely to be causing/contributing to symptoms (such as hyperglycemia, hyponatremia). Departure - Departure Disposition: 01 Home, Self Care Clinical Impression: Weakness Hypotension Qualifiers: Hypotension type: unspecified hypotension type Qualified Code(s): I95.9 - Hypotension, unspecified Condition: Good Instructions: ED Hypotension All Causes, ED Weakness [facility] Follow-Up: Kathryn Shipley DO [Primary Care Provider] - Within 3 Days Discharge Date/Time: 10/05/20 01:40
== END 2020-10-05 01:40 | disposition home or self-care (01) ==
LOC: ED 22:10
DX: R53.1 Weakness (principal); R29.898 Other symptoms and signs involving the musculoskeletal system; I95.9 Hypotension, unspecified; R41.0 Disorientation, unspecified; I48.91 Unspecified atrial fibrillation; I48.92 Unspecified atrial flutter; Z79.01 Long term (current) use of anticoagulants; Z95.0 Presence of cardiac pacemaker; I10 Essential (primary) hypertension; E11.9 Type 2 diabetes mellitus without complications; Z79.4 Long term (current) use of insulin; Z86.73 Personal history of transient ischemic attack (TIA), and cerebral infarction without residual deficits
CPT/HCPCS: 36415; 71045; 80053; 83690; 84484; 85025; 93005; 99284; J1815

== ENCOUNTER 2021-07-22 14:53 | Outpatient (CLI) | payer MEDICARE, OTHER ==
--- NOTE | 2021-07-22 16:06 | XRAY Report ---
PROCEDURE: Chest 2 View X-Ray INDICATIONS: PNEUMONIA; DYSPNEA TECHNIQUE: 2 view(s) of the chest. COMPARISON: October 04, 2020 FINDINGS: SUPPORT DEVICES: Right IJ central venous catheter and left cardiac device are again demonstrated. LUNGS/PLEURA: No focal consolidation, pleural effusion or space-occupying pneumothorax. MEDIASTINUM: The cardiac silhouette is within normal limits. Calcified atheromatous aorta with tortuo sity. BONES/SOFT TISSUES: No acute abnormality. IMPRESSION: 1.No acute cardiopulmonary abnormality. Reviewed by: Kamar Serrano MD on 07/22/2021 4:05 PM PDT Approved by: Kamar Serrano MD on 07/22/2021 4:05 PM PDT Station ID: [id number]
== END 2021-07-22 14:54 | disposition home or self-care (01) ==
LOC: DI.N 14:53
PROVIDERS: ATTEND Internal Medicine Nephrology
DX: J18.9 Pneumonia, unspecified organism (principal); Z11.7 Encounter for testing for latent tuberculosis infection

== ENCOUNTER 2021-09-24 23:05 | Outpatient (CLI) | payer MEDICARE, OTHER | END 2021-09-24 23:06 | disposition critical access hospital (66) | LOC: EMS 23:05 | DX: R41.82 Altered mental status, unspecified (principal); R53.1 Weakness; R29.810 Facial weakness | CPT/HCPCS: A0425; A0429 ==

== ENCOUNTER 2021-09-24 23:17 | Emergency (ER) | payer MEDICARE, OTHER ==
[2021-09-24 23:43] LABS: BASOPHILS # (AUTO) 0.1 10^3/uL (0.0-0.1); BASOPHILS % (AUTO) 0.6 %; EOSINOPHILS % (AUTO) 0.2 %; HCT - HEMATOCRIT 40.9 % (37.0-47.0); HGB - HEMOGLOBIN 13.2 g/dL (12.0-16.0); LYMPHOCYTES # (AUTO) 1.3 10^3/uL (1.5-3.5); LYMPHOCYTES % (AUTO) 14.6 %; MEAN CORPUSCULAR HEMOGLOBIN 32.2 pg (27.0-31.0); MEAN CORPUSCULAR HGB CONC 32.3 g/dL (32.0-36.0); MEAN CORPUSCULAR VOLUME 99.8 fL (81.0-99.0); MEAN PLATELET VOLUME 10.1 fL (7.9-10.8); MONOCYTES # (AUTO) 0.4 10^3/uL (0.0-1.0); MONOCYTES % (AUTO) 3.9 %; NEUTROPHILS # (AUTO) 7.3 10^3/uL (1.5-6.6); NEUTROPHILS % (AUTO) 80.4 %; PLT - PLATELET COUNT 198 10^3/uL (130-450); RED CELL DISTRIBUTION WIDTH 13.3 % (12.0-15.0); WHITE BLOOD COUNT 9.1 x10^3/uL (4.8-10.8)
--- NOTE | 2021-09-24 23:45 | CT Report ---
PROCEDURE: Head W/O Stroke Protocol INDICATIONS: right weakness acute TECHNIQUE: Noncontrast 4.5 mm thick angled axial sections acquired from the foramen magnum to the vertex, with c oronal reformats. For radiation dose reduction, the following was used: automated exposure control, adjustment of mA and/or kV according to patient size. COMPARISON: FINDINGS: Image quality: Excellent. CSF spaces: Basal cisterns are patent. No extra-axial fluid collections. Ventricles are normal in size and shape. Brain: No midline shift. No intracranial masses or hemorrhage. Miller-white matter interface is unch anged from recent comparison study 09/21/2020. There is evidence of encephalomalacia within the deep w anders matter of each hemisphere, and what likely has been prior ischemic injury involving the right pa rietal region superiorly, and the posterior aspect of the left parietal region deep white matter.. Skull and face: Calvarium and visualized facial bones are intact, without suspicious lesions. Sinuses: Visualized sinuses and mastoids are clear. IMPRESSION: No intracranial hemorrhage seen. No definite new stroke identified. Patchy areas of certified technician specialist efrain appearing encephalomalacia indicate likelihood of prior strokes, involving the superior aspect of the parietal deep white matter bilaterally. These were better visualized by CT scanning 3 days ago. The current study is mildly compromised by patient motion. This study fulfills neurological imaging criteria for inclusion or exclusion of acute stroke therapie s based on available published neurological imaging guidelines. Reviewed by: Nikolay Ramirez MD on 09/24/2021 11:47 PM PDT Approved by: Nikolay Ramirez MD on 09/24/2021 11:47 PM PDT Station ID: [id number]
--- NOTE | 2021-09-24 23:47 | ED Physician Documentation ---
PD HPI FOCAL NEURO - Stated complaint Stated Complaint: R SIDE CVA - Chief complaint Chief Complaint: Neuro - History obtained from History obtained from: Patient, Family, EMS - History of Present Illness Timing - onset: How many hours ago (up to 8 hours (family saw her last at 3 pm when she went for a nap; they went to dinner democrat and came back to find her poorly responsive and significant right sided weakness).) Timing - duration: Hours Timing - details: Abrupt onset Time of symptom onset unknown: Time of onset unknown Severity of deficit: Severe Weakness: Face, Arm, Leg, Right Numbness: Arm, Leg, Right Associated symptoms: No: Headache, Nausea / vomiting, Seizure, Fall Contributing factors: positive: Anticoagulated (is on Eliquis but her pharmacy had problem with most recent refill and did not have it as planned, so she has not taken it the past week.), Atrial fibrillation. negative: Vascular dz, Prosthetic heart valve Baseline status: positive: A&OX3, ambulatory, indep, Walker Similar symptoms before: Has not had sx before Recently seen: Other (normal dialysis without problems earlier today (Sunday).) Review of Systems Unable to obtain: AMS, Other (info from family though.) Constitutional: denies: Fever Nose: denies: Congestion Respiratory: denies: Dyspnea, Cough GI: denies: Vomiting, Diarrhea Skin: denies: Rash Neurologic: reports: Focal weakness (just this evening.), Altered mental status. 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 ), Renal insuffiency HEENT: Other Psych: None Musculoskeletal: Osteoarthritis Derm: None - Past Surgical History Past Surgical History: Yes - Present Medications Home Medications: Ambulatory Orders Medication Instructions Recorded Confirmed Calcium Acetate 667 mg PO TID 08/23/20 10/05/20 Diltiazem HCl [Cardizem LA] 240 mg PO QPM 08/23/20 10/05/20 Torsemide 20 mg PO DAILY 08/23/20 10/05/20 carvediloL [Coreg] 12.5 mg PO BID 08/23/20 10/05/20 Apixaban [Eliquis] 2.5 mg PO BID 09/21/20 10/05/20 Atorvastatin [Lipitor] 40 mg PO DAILY 09/21/20 10/05/20 Losartan [Cozaar] 100 mg PO DAILY PM 09/21/20 10/05/20 Insulin Lispro [Humalog] 5 units SUBQ TIDWM 10/05/20 10/05/20 - Allergies Allergies/Adverse Reactions: Allergies Allergy/AdvReac Type Severity Reaction Status Date / Time lisinopril AdvReac Intermediate Unknown Verified 09/24/21 23:33 naproxen AdvReac Rash Verified 09/24/21 23:33 - Social History Does the pt smoke?: No Smoking Status: Never smoker Does the pt drink ETOH?: Yes Does the pt have substance abuse?: No - Immunizations Immunizations are current?: Yes Immunizations: TDAP current <10years - POLST Patient has POLST: No PD ED PE NORMAL - Vitals Vital signs reviewed: Yes - General General: No acute distress, Well developed/nourished. No: Alert and oriented X 3 (poor interaction and sluggish to follow commands. ) - HEENT HEENT: Atraumatic, PERRL, EOMI - Neck Neck: Supple, no meningeal sign, No bony TTP, No adenopathy - Cardiac Cardiac: No: RRR (irregular with mild murmur left chest. ) - Respiratory Respiratory: No respiratory distress, Clear bilaterally, Other (dialysis catheter right chest wall without signs infecton at the skin. ) - Abdomen Abdomen: Soft, Non tender - Derm Derm: Normal color, Warm and dry - Extremities Extremities: No edema - Neuro Neuro: Other (right arm, leg and face weakness noted. ). No: Normal speech NIHSS - Level of Consciousness Level of consciousness: (1) Not alert, but arousable by minor stimulation to obey, or answer LOC Questions: (1) Answers one Q correctly - Gaze Best Gaze: (0) Normal - Visual Visual: (0) No loss - Facial Palsy Facial Palsy: (2) Partial paralysis - Motor Arms (both separate) Motor Arm (right): (2) Some effort against gravity Motor Arm (left): (0) No drift - Motor Legs (both separate) Motor Leg (right): (3) No effort against gravity Motor Leg (left): (0) No drift - Limb Ataxia Limb Ataxia: (1) Present in 1 limb - Sensory Sensory: (1) Qmcd-gv-prwvqjdf loss - Best Language Best Language: (1) [id number] - Dysarthria Dysarthria: (0) Normal - Extinction and Inattention (formally neg Extinction and inattention: (0) No abnormality Results - Vitals Vitals: Vital Signs - 24 hr 09/24/21 09/25/21 09/25/21 23:18 00:08 00:30 Temperature 36.2 C L Heart Rate 60 60 60 Respiratory 21 16 16 Rate Blood Pressure 218/93 H 171/73 H 131/98 H O2 Saturation 100 100 100 09/25/21 09/25/21 09/25/21 01:00 01:30 02:00 Temperature Heart Rate 60 60 60 Respiratory 20 20 16 Rate Blood Pressure 174/62 H 150/105 H 163/92 H O2 Saturation 100 100 100 09/25/21 09/25/21 09/25/21 02:30 03:00 03:30 Temperature Heart Rate 60 60 60 Respiratory 16 18 19 Rate Blood Pressure 166/75 H 172/70 H 168/76 H O2 Saturation 100 100 99 09/25/21 09/25/21 04:00 04:30 Temperature Heart Rate 60 60 Respiratory 15 17 Rate Blood Pressure 146/85 H 135/83 H O2 Saturation 99 98 Oxygen O2 Source [With Activity] Room air O2 Source Room air - Labs Labs: Laboratory Tests 09/24/21 09/24/21 09/24/21 23:34 23:34 23:34 WBC 9.1 RBC 4.10 L Hgb 13.2 Hct 40.9 MCV 99.8 H MCH 32.2 H MCHC 32.3 RDW 13.3 Plt Count 198 MPV 10.1 Neut # (Auto) 7.3 H Lymph # (Auto) 1.3 L [place] # (Auto) 0.4 Eos # (Auto) 0.0 Baso # (Auto) 0.1 Absolute Nucleated RBC 0.00 Nucleated RBC % 0.0 PT 11.1 INR 1.0 Sodium 137 Potassium 4.4 Chloride 97 L Carbon Dioxide 26 Anion Gap 14.0 H BUN 31 H Creatinine 2.9 H Estimated GFR (MDRD) 16 L Glucose 294 H Calcium 9.0 Magnesium 1.9 Total Bilirubin 0.8 AST 26 ALT 23 Alkaline Phosphatase 80 Total Protein 8.5 H Albumin 3.9 Globulin 4.6 H Albumin/Globulin Ratio 0.8 L Lipase 24 SARS-CoV-2 (PCR) 09/24/21 23:56 WBC RBC Hgb Hct MCV MCH MCHC RDW Plt Count MPV Neut # (Auto) Lymph # (Auto) [place] # (Auto) Eos # (Auto) Baso # (Auto) Absolute Nucleated RBC Nucleated RBC % PT INR Sodium Potassium Chloride Carbon Dioxide Anion Gap BUN Creatinine Estimated GFR (MDRD) Glucose Calcium Magnesium Total Bilirubin AST ALT Alkaline Phosphatase Total Protein Albumin Globulin Albumin/Globulin Ratio Lipase SARS-CoV-2 (PCR) NOT DETECTED - Rads (name of study) head CT Radiology: Prelim report reviewed (old infarcts noted. No acute bleed.), See rad report anguo neck and head Radiology: Prelim report reviewed (right MCA/first segment occlusion with reconstitution distal, similar to CT-A 2018. No acute changes, nor any acute LVO. ), See rad report PD MEDICAL DECISION MAKING - ED course Complexity details: reviewed results, considered differential, d/w family (son) ED course: The patient has strokelike symptoms. Last known normal was almost 8 hours ago so out of the window for potential tPA. I talked with the patient's son and he felt the patient would want to undergo endovascular treatment if she were able to give her own consent. We therefore did do angio head and neck to evaluate for large vessel occlusion. No acute ones were found. I talked with the patient's son and updated about still wanting further stroke care and evaluation. The patient does require dialysis in another 2 days. She will need further stroke care and assessment for degree of disability and possible placement. We will need to find a larger facility that can undergo further testing and in particular dialysis as well. transfer center called back and did connect me with the stroke neurologist. She concurred no interventions such as thrombolytics nor endovascular treatment. However the physician neurologist did accept the patient in transfer for further stroke care. Departure - Departure Disposition: 02 Transfer Acute Care Hosp Clinical Impression: Cerebrovascular accident (CVA), Acute right-sided weakness, Chronic renal failure Condition: Stable Record reviewed to determine appropriate education?: Yes
[2021-09-24 23:56] LABS: ALBUMIN 3.9 g/dL (3.2-5.5); ALBUMIN/GLOBULIN RATIO 0.8 (1.0-2.2); BILIRUBIN,TOTAL 0.8 mg/dL (0.2-1.0); CREATININE 2.9 mg/dL (0.4-1.0); MAGNESIUM 1.9 mg/dL (1.7-2.8); POTASSIUM 4.4 mmol/L (3.5-5.0); TOTAL PROTEIN 8.5 g/dL (6.7-8.2)
[2021-09-25] MEDS ORDERED: SODIUM CHLORIDE 0.9% 1,000 ML IV STA (00:13)
--- NOTE | 2021-09-25 00:19 | XRAY Report ---
PROCEDURE: Chest 1 View X-Ray INDICATIONS: chest pain TECHNIQUE: One view of the chest was acquired. COMPARISON: 06/14/2016 chest 1 view. FINDINGS: Surgical changes and devices: Pacemaker with dual chamber leads in normal position, and what appears to be a double lumen likely dialysis catheter from right-sided approach extends into the superior rig ht atrium area.. Lungs and pleura: No pleural effusions or pneumothorax. Lungs are clear. Mediastinum: Mediastinal contours appear normal. Heart size is normal. Bones and chest wall: No suspicious bony lesions. Overlying soft tissues appear unremarkable. IMPRESSION: Source of chest pain is not seen. Pacemaking device and leads appear normal, presumed dialysis cathet er in normal position from right-sided approach. Reviewed by: Nikolay Ramirez MD on 09/25/2021 12:22 AM PDT Approved by: Nikolay Ramirez MD on 09/25/2021 12:22 AM PDT Station ID: [id number]
[2021-09-25 00:49] LABS: PT - PROTHROMBIN TIME 11.1 secs (9.9-12.6)
[2021-09-25] MEDS ORDERED: PROMETHAZINE INJ 12.5 MG in SODIUM CHLORIDE 0.9% 50 ML IV STA (01:03)
[2021-09-25] MEDS ORDERED: PROMETHAZINE 25 MG/1 ML VIAL ONE (01:27)
--- NOTE | 2021-09-25 01:53 | CT Report ---
PROCEDURE: ANGIO HEAD W/WO INDICATIONS: right weakness, acute CONTRAST: IV CONTRAST: Isovue 300 ml: 100 PO CONTRAST: *NO PO CONTRAST TECHNIQUE: Precontrast 4.5 mm thick angled axial sections acquired from the foramen magnum to the vertex. Afte r the administration of intravenous contrast, 1 mm thick sections acquired through the [place] of [place] is. Postcontrast 4.5 mm thick sections then re-acquired from the foramen magnum to the vertex. 3-di mensional bhijycc-epzvoowvu-anajeqboiq (MIP) and/or volume rendering reformats were acquired of the c entral intracranial vasculature. For radiation dose reduction, the following was used: automated ex posure control, adjustment of mA and/or kV according to patient size. COMPARISON: Similar study 01/03/2018 FINDINGS: Image quality: Excellent. Anterior circulation: Intracranial internal carotid arteries are normal in size and flow. The flow within the paired anterior cerebral arteries is normal and symmetric. The flow within the middle cer ebral arteries is asymmetric, normal on the left and appreciably diminished on the right as was previ ously the case during similar study performed 01/03/2018.. The anterior communicating artery is seen. No aneurysms are seen. Posterior circulation: Visualized portions of the vertebral arteries demonstrate normal caliber, and join to form a normal appearing basilar artery. Flow within the posterior cerebral arteries is norm al and symmetric. No aneurysms are seen. CSF spaces: Ventricles are normal in size and shape. Basal cisterns are patent. No extra-axial flu id collections. Brain: No midline shift. No intracranial bleeds or masses. Miller-white matter interface appears int act. Skull and face: Calvarium and facial bones appear intact, without suspicious lesions. Sinuses: Visualized sinuses and mastoids are clear. IMPRESSION: Stable appearance of encephalomalacia bilaterally involving the deep white matter of the parietal lob es bilaterally, right greater than left. Old ischemic injury also was present on a similar evaluation from December 2017 in these areas. No definite acute disease. 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 Reviewed by: Nikolay Ramirez MD on 09/25/2021 1:51 AM PDT Approved by: Nikolay Ramirez MD on 09/25/2021 1:51 AM PDT Station ID: [id number]
--- NOTE | 2021-09-25 01:57 | CT Report ---
PROCEDURE: ANGIO NECK W INDICATIONS: right sided weakness, acute CONTRAST: IV CONTRAST: Isovue 300 ml: 100 PO CONTRAST: *NO PO CONTRAST TECHNIQUE: After the administration of intravenous contrast, 1.5 mm axial sections acquired from the aortic arch to the [place] of [place]. Coronal 3-D maximum intensity projection (MIP) and/or volume rendering ref ormats were then performed. For radiation dose reduction, the following was used: automated exposur e control, adjustment of mA and/or kV according to patient size. COMPARISON: Similar study 01/03/2018.. FINDINGS: Image quality: Excellent. Carotid system: The left-sided great vessels demonstrate a conventional anatomy as they arise from t he aortic arch but there is an aberrant right subclavian artery previously identified in 2018 which w as occluded near its origin and perfusion is peripherally by collateral flow as is currently the case .. The origins of the common carotid arteries appear patent. The common carotid arteries demonstrat e normal calibers and courses. The bifurcation regions appear normal bilaterally. The internal eagle tid arteries demonstrate normal caliber and course. Posterior circulation: The origins of the vertebral arteries appear patent. The more superior porti ons of the vertebral arteries demonstrate normal course and caliber. They join to form a normal appe aring basilar artery. Soft tissues: Visualized neck soft tissues demonstrate no suspicious abnormalities. The thyroid is normal in size and there are no incidental findings. Bones: No suspicious bony lesions. Visualized cervical spine appears normally aligned. 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 The right and left common carotid arteries extend cephalad without significant stenosis and extends cephalad in to the skull base. No acute disease, no appreciable change from the prior examination. The estimate of stenosis included in the report of the imaging study was calculated using the NASCET method CLINICAL RECOMMENDATION STATEMENTS: In patients <35 years with an ITN detected on CT, MRI, or extrathyroidal ultrasound, the Committee re commends further evaluation with dedicated thyroid ultrasound if the nodule is "e1 cm and has no susp icious imaging features, and if the patient has normal life expectancy. In patients "e35 years with an ITN detected on CT, MRI, or extrathyroidal ultrasound, the Committee r ecommends further evaluation with dedicated thyroid ultrasound if the nodule is "e1.5 cm and has no s uspicious imaging features, and if the patient has normal life expectancy. (ACR, 2014) Reviewed by: Nikolay Ramirez MD on 09/25/2021 1:56 AM PDT Approved by: Nikolay Ramirez MD on 09/25/2021 1:56 AM PDT Station ID: [id number]
[2021-09-25] MEDS ORDERED: IOPAMIDOL-300 50 ML VIAL IVP ONE (02:03)
[2021-09-25] MEDS ORDERED: ENOXAPARIN 60 MG/0.6 ML SYRINGE SUBQ STA (03:04)
[2021-09-25 05:41] VITALS: BP 134/78
== END 2021-09-25 05:55 | disposition short-term general hospital (02) ==
LOC: EDUNIT# → ED 23:17
DX: I63.9 Cerebral infarction, unspecified (principal); G81.91 Hemiplegia, unspecified affecting right dominant side; I48.91 Unspecified atrial fibrillation; Z79.01 Long term (current) use of anticoagulants; Z79.4 Long term (current) use of insulin; E11.22 Type 2 diabetes mellitus with diabetic chronic kidney disease; I13.11 Hypertensive heart and chronic kidney disease without heart failure, with stage 5 chronic kidney disease, or end stage renal disease; N18.6 End stage renal disease; Z99.2 Dependence on renal dialysis; Z20.822 Contact with and (suspected) exposure to COVID-19
CPT/HCPCS: 36415; 70450; 70496; 70498; 71045; 80053; 83690; 83735; 85025; 85610; 87635; 93005; 96365; 96372; 99284; 99285; J1650; J7040; Q9967

== ENCOUNTER 2022-02-18 18:19 | Outpatient (CLI) | payer MEDICARE, OTHER | END 2022-02-18 18:20 | disposition short-term general hospital (02) | LOC: EMS 18:19 | DX: T82.7XXA Infection and inflammatory reaction due to other cardiac and vascular devices, implants and grafts, initial encounter (principal); Z99.2 Dependence on renal dialysis | CPT/HCPCS: A0425; A0429 ==

== ENCOUNTER 2022-03-10 04:20 | Emergency (ER) | payer MEDICARE, OTHER ==
--- NOTE | 2022-03-10 04:29 | ED Physician Documentation ---
History of Present Illness - Stated complaint Stated Complaint: PULLED STICHES - History obtained from History obtained from: Patient, Caregiver - History of Present Illness Timing: Prior to arrival - Additonal information Additional information: JOLIE from [facility]. Patient is HD patient, has right ACW catheter. EMS was called because staff had concern that patient might have pulled at the catheter and dislodged it and/or broken the stitches anchoring it in place. Patient is nonverbal which is her baseline since having CVA. 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 ), Renal insuffiency HEENT: Other Psych: None Musculoskeletal: Osteoarthritis Derm: None - Past Surgical History Past Surgical History: Yes - Present Medications Home Medications: Ambulatory Orders Medication Instructions Recorded Confirmed Calcium Acetate 667 mg PO TID 08/23/20 03/10/22 Diltiazem HCl [Cardizem LA] 240 mg PO QPM 08/23/20 03/10/22 Torsemide 20 mg PO DAILY 08/23/20 03/10/22 carvediloL [Coreg] 12.5 mg PO BID 08/23/20 03/10/22 Apixaban [Eliquis] 2.5 mg PO BID 09/21/20 03/10/22 Atorvastatin [Lipitor] 40 mg PO DAILY 09/21/20 03/10/22 Losartan [Cozaar] 100 mg PO DAILY PM 09/21/20 03/10/22 Insulin Lispro [Humalog] 5 units SUBQ TIDWM 10/05/20 03/10/22 - Allergies Allergies/Adverse Reactions: Allergies Allergy/AdvReac Type Severity Reaction Status Date / Time lisinopril AdvReac Intermediate Unknown Verified 03/10/22 04:31 naproxen AdvReac Rash Verified 03/10/22 04:31 - Social History Does the pt smoke?: No Smoking Status: Never smoker Does the pt drink ETOH?: Yes Does the pt have substance abuse?: No - Immunizations Immunizations are current?: Yes Immunizations: TDAP current <10years - POLST Patient has POLST: No PD ED PE NORMAL - Vitals Vital signs reviewed: Yes - General General: No acute distress, Well developed/nourished, Other (awake, alert at times. seems to make purposeful gaze , follows some simple commands. She is mostly nonverbal, and only verbalizing is moaning at times) PD ED PE EXPANDED - Cardiac Cardiac: Chest wall TTP (right anterior chest wall duoport dialysis catheter is in place with single suture intact anchoring device in place. there is some laxity of the suture yet no evidence of loss of integrity of the suture itself nor the suture site. The device insertion site is C/D/I without erythema or discharge. ) Results - Vitals Vitals: Oxygen O2 Source [With Activity] Room air O2 Source Room air - Rads (name of study) chest xray Radiology: Prelim report reviewed, See rad report PD MEDICAL DECISION MAKING - ED course Complexity details: reviewed results, considered differential ED course: No evidence of loss of integrity of the suture nor device (dialysis catheter) in right upper anterior chest wall. CXR c/w proper position of catheter and tip Departure - Departure Disposition: 01 Home, Self Care Clinical Impression: Vascular dialysis catheter in place Condition: Stable Instructions: ED Dialysis Hemo Comments: The dialysis catheter appears to be in place and proper position; the suture is intact. Chest xray was performed and there are no concerning findings on this study. Discharge Date/Time: 03/10/22 08:07
[2022-03-10] MEDS ORDERED: oxyCODONE 5 MG TABLET PO STA (05:00)
[2022-03-10 06:37] VITALS: BP 159/78
--- NOTE | 2022-03-10 08:17 | XRAY Report ---
PROCEDURE: Chest 1 View X-Ray INDICATIONS: line placement TECHNIQUE: One view of the chest was acquired. COMPARISON: 09/24/2021. FINDINGS: Surgical changes and devices: Left chest wall pacemaker and right-sided dialysis catheter positions unchanged. There is a pigtail catheter seen projecting in right upper quadrant abdomen just lateral t o the midline.. Lungs and pleura: No pleural effusions or pneumothorax. Lungs are clear. Mediastinum: Mediastinal contours appear normal. Heart size is normal. Bones and chest wall: No suspicious bony lesions. Overlying soft tissues appear unremarkable. IMPRESSION: No acute cardiopulmonary pathology. No discrepancies from preliminary readings. Reviewed by: Federico Cole MD on 03/10/2022 8:15 AM PST Approved by: Federico Cole MD on 03/10/2022 8:15 AM PST Station ID: [id number]
== END 2022-03-10 08:07 | disposition home or self-care (01) ==
LOC: EDUNIT# → ED 04:20
DX: Z95.9 Presence of cardiac and vascular implant and graft, unspecified (principal); Z99.2 Dependence on renal dialysis
CPT/HCPCS: 71045; 99281; 99283; A9270

== ENCOUNTER → 2022-03-10 | Outpatient (CLI) | payer MEDICARE, OTHER | END | disposition home or self-care (01) | LOC: EMS 08:02 | PROVIDERS: ATTEND Emergency Medicine | DX: I69.351 Hemiplegia and hemiparesis following cerebral infarction affecting right dominant side (principal); Z74.01 Bed confinement status | CPT/HCPCS: A0425; A0428 ==

== ENCOUNTER → 2022-03-10 | Outpatient (CLI) | payer MEDICARE, OTHER | END | disposition critical access hospital (66) | LOC: EMS 04:17 | DX: T82.898A Other specified complication of vascular prosthetic devices, implants and grafts, initial encounter (principal); Z99.2 Dependence on renal dialysis | CPT/HCPCS: A0425; A0429 ==

== ENCOUNTER 2022-03-17 01:36 | Outpatient (CLI) | payer MEDICARE, OTHER | END 2022-03-17 01:37 | disposition critical access hospital (66) | LOC: EMS 01:36 | DX: K94.23 Gastrostomy malfunction (principal) | CPT/HCPCS: A0425; A0429 ==

== ENCOUNTER 2022-03-17 01:42 | Emergency (ER) | payer MEDICARE, OTHER ==
--- NOTE | 2022-03-17 01:58 | ED Physician Documentation ---
History of Present Illness - Stated complaint Stated Complaint: CLOGGED PEG TUBE - Chief complaint Chief Complaint: General - History obtained from History obtained from: EMS - Additonal information Additional information: Patient is a 71-year-old female with a history of end-stage renal disease on hemodialysis, CVA, and A. fib presenting for evaluation of clogged PEG tube. Facility noted that the PEG tube was clogged around 930. When asked the patient if she has any pain she shakes her head no.Based on records reviewed in the medical center care appears that G-tube was placed to October 20 of this year.She is on Eliquis. 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 ), Renal insuffiency HEENT: Other Psych: None Musculoskeletal: Osteoarthritis Derm: None - Past Surgical History Past Surgical History: Yes - Present Medications Home Medications: Ambulatory Orders Medication Instructions Recorded Confirmed Torsemide 40 mg PEG DAILY 08/23/20 03/17/22 Atorvastatin [Lipitor] 40 mg PO DAILY 09/21/20 03/17/22 Losartan [Cozaar] 75 mg PEG DAILY 09/21/20 03/17/22 Insulin Lispro [Humalog] 5 units SUBQ TIDWM 10/05/20 03/17/22 Acetaminophen [Tylenol] 650 mg PEG Q4HR PRN 03/17/22 03/17/22 Apixaban [Eliquis] 2.5 mg PEG BID 03/17/22 03/17/22 Calcium Carbonate [Tums (Calcium 1,000 mg PEG AC 03/17/22 03/17/22 Carbonate 500mg)] Folic Acid 1 mg PEG DAILY 03/17/22 03/17/22 Melatonin 10 mg PEG HS 03/17/22 03/17/22 Metoclopramide [Reglan] 5 mg PEG Q6HR PRN 03/17/22 03/17/22 Omeprazole 20 mg PEG AC 03/17/22 03/17/22 Tizanidine HCl [Zanaflex] 2 mg PEG TID 03/17/22 03/17/22 - Allergies Allergies/Adverse Reactions: Allergies Allergy/AdvReac Type Severity Reaction Status Date / Time lisinopril AdvReac Intermediate Unknown Verified 03/17/22 01:50 naproxen AdvReac Rash Verified 03/17/22 01:50 - Social History Does the pt smoke?: No Smoking Status: Never smoker Does the pt drink ETOH?: Yes Does the pt have substance abuse?: No - Immunizations Immunizations are current?: Yes Immunizations: TDAP current <10years - POLST Patient has POLST: No PD ED PE NORMAL - General General: No acute distress, Well developed/nourished, Other (Alert) - HEENT HEENT: Atraumatic - Cardiac Cardiac: RRR - Respiratory Respiratory: No respiratory distress, Clear bilaterally - Abdomen Abdomen: Soft, Non tender, Non distended, Other (G-tube site is clean, dry, no erythema, no surrounding tenderness) - Derm Derm: Warm and dry Results - Vitals Vitals: Vital Signs - 24 hr 03/17/22 03/17/22 03/17/22 01:50 02:29 02:56 Temperature 37.2 C Heart Rate 60 60 59 L Respiratory 16 15 16 Rate Blood Pressure 159/81 H 163/75 H 162/76 H O2 Saturation 100 99 100 03/17/22 04:04 Temperature 37.0 C Heart Rate 59 L Respiratory 17 Rate Blood Pressure 173/73 H O2 Saturation 100 Oxygen O2 Source [With Activity] Room air O2 Source Room air Procedures - General procedure General procedure: Stitch holding previous G-tube in place was cut and removed from the skin. There was some resistance in removing the tube so an x-ray was obtained to evaluate if there was a mushroom style bumper on the inside. I did discuss with Dr. Erwin as there was not a visible stitch to cut to release the pigtail and she recommended cutting the tube Distally to release the pigtail. This was done and the prior G-tube was removed in its entirety without any difficulty. A new 18 Greenlandic G-tube was placed and The balloon inflated. Placement was confirmed with x-ray/Gastrografin. PD MEDICAL DECISION MAKING - ED course ED course: Patient presented for malfunctioning G-tube that was clogged. We are unable to clear the clog with irrigation. The previous tube was removed in its entirety and a new 1 was placed without difficulty. Placement was confirmed with x-ray and Gastrografin. Patient tolerated well.Patient transported back to her nursing facility. Departure - Departure Disposition: 01 Home, Self Care Clinical Impression: Gastrostomy malfunction Condition: Stable Instructions: ED G Tube Replacement Comments: Your G-tube was replaced with an 18 Greenlandic that has a balloon. Please make sure that the tube is flushed when it is not being used to prevent it from getting clogged. If you have any issues with the tube please return to the ER. Discharge Date/Time: 03/17/22 04:04
[2022-03-17] MEDS ORDERED: LIDOCAINE 2% URO-JET 5 ML SYRINGE UR STA (02:16)
[2022-03-17 04:06] VITALS: BP 173/73
[2022-03-17] MEDS ORDERED: DIATRIZOATE MEGLU/DIATRIZO SOD 30 ML BOTTLE PO ONE ×2 (04:10→04:16)
--- NOTE | 2022-03-17 08:26 | XRAY Report ---
PROCEDURE: Abdomen 1 View X-Ray INDICATIONS: assess type of catheter TECHNIQUE: One view of the abdomen acquired. COMPARISON: None. FINDINGS: Surgical changes and devices: Percutaneous gastrostomy tube tip is seen within the anterior gastric b karina.. Bowel: No gross pneumoperitoneum is seen. Bowel gas pattern is grossly nonobstructive. Soft tissues: No suspicious abdominal calcifications. Visualized solid organ contours appear normal in size. Bones: No suspicious bony lesions. IMPRESSION: Percutaneous gastrostomy tube tip is seen within the anterior gastric body. No gross pneumoperitoneum . No discrepancies. Reviewed by: Federico Cole MD on 03/17/2022 8:25 AM PST Approved by: Federico Cole MD on 03/17/2022 8:25 AM PST Station ID: [id number]
--- NOTE | 2022-03-17 08:27 | XRAY Report ---
PROCEDURE: Abdomen 1 View X-Ray INDICATIONS: G tube confirmation TECHNIQUE: One view of the abdomen acquired. COMPARISON: Earlier study from the same day FINDINGS: Surgical changes and devices: Left upper quadrant percutaneous gastrostomy tube is again seen. Bowel: Bowel gas pattern is normal. Or contrast is seen filling gastric lumen. No contrast extravasa tion. Soft tissues: No suspicious abdominal calcifications. Visualized solid organ contours appear normal in size. Bones: No suspicious bony lesions. IMPRESSION: Percutaneous gastrostomy tube appears to be in satisfactory position. No contrast extravasation. No discrepancies. Reviewed by: Federico Cole MD on 03/17/2022 8:26 AM [facility] Approved by: Federico Cole MD on 03/17/2022 8:26 AM PST Station ID: [id number]
== END 2022-03-17 04:04 | disposition home or self-care (01) ==
LOC: ED 01:42
DX: K94.23 Gastrostomy malfunction (principal)
CPT/HCPCS: 43762; 74018; 99283; Q9963

== ENCOUNTER 2022-03-17 04:04 | Outpatient (CLI) | payer MEDICARE, OTHER | END 2022-03-17 23:59 | disposition home or self-care (01) | LOC: EMS 04:04 | PROVIDERS: ATTEND Emergency Medicine | DX: K94.23 Gastrostomy malfunction (principal); Z74.01 Bed confinement status | CPT/HCPCS: A0425; A0428 ==

== ENCOUNTER 2022-04-21 14:37 | Outpatient (CLI) | payer MEDICARE, OTHER ==
[2022-04-21 15:02] LABS: BILIRUBIN,URINE NEGATIVE (NEGATIVE); GLUCOSE, URINE (UA) NEGATIVE (NEGATIVE); KETONES,URINE (UA) NEGATIVE (NEGATIVE); LEUKOCYTE ESTERASE, URINE LARGE (NEGATIVE); NITRITE,URINE NEGATIVE (NEGATIVE); OCCULT BLOOD,URINE MODERATE (NEGATIVE); PROTEIN,URINE 100 mg/dL (NEGATIVE); UROBILINOGEN,URINE 0.2 (NORMAL) E.U./dL (NORMAL)
[2022-04-21 15:13] LABS: BACTERIA,URINE Many /HPF (None Seen); CLARITY,URINE CLOUDY (CLEAR); EPITHELIAL CELLS,UR FEW Transitional /HPF (<= Few); SQUAMOUS EPITHELIAL CELL,UR RARE Squamous (<= Few); WBC,URINE >25 /HPF (0-5)
== END 2022-04-21 14:38 | disposition home or self-care (01) ==
LOC: LAB.R 14:37
PROVIDERS: ATTEND Internal Medicine
DX: N89.8 Other specified noninflammatory disorders of vagina (principal); N39.0 Urinary tract infection, site not specified; N77.1 Vaginitis, vulvitis and vulvovaginitis in diseases classified elsewhere
CPT/HCPCS: 81001; 81514; 87070; 87077; 87086; 87181

== ENCOUNTER 2022-05-18 11:31 | Outpatient (CLI) | payer MEDICARE, OTHER | END 2022-05-18 23:59 | disposition EMS.NT | LOC: EMS 11:31 | DX: R11.10 Vomiting, unspecified (principal); Z99.2 Dependence on renal dialysis ==

== ENCOUNTER 2022-07-18 08:27 | Outpatient (CLI) | payer MEDICARE, OTHER | END 2022-07-18 08:28 | disposition short-term general hospital (02) | LOC: EMS 08:27 | DX: I10 Essential (primary) hypertension (principal); R45.1 Restlessness and agitation; R11.10 Vomiting, unspecified; Z99.2 Dependence on renal dialysis | CPT/HCPCS: A0425; A0429; A0888 ==

== ENCOUNTER 2022-08-08 04:11 | Outpatient (CLI) | payer MEDICARE, OTHER | END 2022-08-08 23:59 | disposition critical access hospital (66) | LOC: EMS 04:11 | DX: R23.8 Other skin changes (principal); B95.62 Methicillin resistant Staphylococcus aureus infection as the cause of diseases classified elsewhere; Z95.828 Presence of other vascular implants and grafts | CPT/HCPCS: A0425; A0429 ==

== ENCOUNTER 2022-08-08 04:17 | Emergency (ER) | payer MEDICARE, OTHER ==
--- NOTE | 2022-08-08 04:20 | ED Physician Documentation ---
History of Present Illness - Stated complaint Stated Complaint: PORT ISSUE - History obtained from History obtained from: Caregiver - Additonal information Additional information: BIBA. Very limited HPI: patient is unable to provide any HPI/ROS due to AMS/nonverbal (unintelligible, which is her baseline). EMS says staff at [facility] is concern for infection associated with the patient's left chest HD catheter. EMS has no information regarding what led to this concern. EMS says patient was recently inpatient at [facility] for right chest HD catheter infection which was removed and replaced with the current left chest HD catheter. Patient had HD earlier today. Review of Systems Unable to obtain: AMS (does not follow commands. she does make eye contact. 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 ), Renal insuffiency HEENT: Other Psych: None Musculoskeletal: Osteoarthritis Derm: None - Past Surgical History Past Surgical History: Yes Cardiovascular: Pacemaker - Present Medications Home Medications: Ambulatory Orders Medication Instructions Recorded Confirmed Torsemide 40 mg PEG DAILY 08/23/20 03/17/22 Atorvastatin [Lipitor] 40 mg PO DAILY 09/21/20 03/17/22 Losartan [Cozaar] 75 mg PEG DAILY 09/21/20 03/17/22 Insulin Lispro [Humalog] 5 units SUBQ TIDWM 10/05/20 03/17/22 Acetaminophen [Tylenol] 650 mg PEG Q4HR PRN 03/17/22 03/17/22 Apixaban [Eliquis] 2.5 mg PEG BID 03/17/22 03/17/22 Calcium Carbonate [Tums (Calcium 1,000 mg PEG AC 03/17/22 03/17/22 Carbonate 500mg)] Folic Acid 1 mg PEG DAILY 03/17/22 03/17/22 Melatonin 10 mg PEG HS 03/17/22 03/17/22 Metoclopramide [Reglan] 5 mg PEG Q6HR PRN 03/17/22 03/17/22 Omeprazole 20 mg PEG AC 03/17/22 03/17/22 Tizanidine HCl [Zanaflex] 2 mg PEG TID 03/17/22 03/17/22 - Allergies Allergies/Adverse Reactions: Allergies Allergy/AdvReac Type Severity Reaction Status Date / Time lisinopril AdvReac Intermediate Unknown Verified 08/08/22 04:28 naproxen AdvReac Rash Verified 08/08/22 04:28 - Social History Does the pt smoke?: No Smoking Status: Never smoker Does the pt drink ETOH?: Yes Does the pt have substance abuse?: No - Immunizations Immunizations are current?: Yes Immunizations: TDAP current <10years - POLST Patient has POLST: No PD ED PE NORMAL - Vitals Vital signs reviewed: Yes - General General: Well developed/nourished, Other (awake, alert, makes eye contact, does not follow commands, verbalizes unintelligible sounds) - HEENT HEENT: Moist mucous membranes - Cardiac Cardiac: RRR - Respiratory Respiratory: No respiratory distress, Clear bilaterally - Abdomen Abdomen: Soft, Non tender - Derm Derm: No rash, Other (flaking/scaling skin on hands ) PD ED PE EXPANDED - Cardiac Cardiac: No: Chest wall TTP (left anterior chest wall HD catheter insertion site is C/D/I with trace/faint, poorly-marginated erythema immediately surrounding insertion site. No fluctuance, no swelling, no discharge. Intact sutures in place (anchoring the catheter to chest wall)) Results - Vitals Vitals: Oxygen O2 Source [With Activity] Room air O2 Source Room air PD Medical Decision Making - ED course Complexity details: considered differential ED course: ED RN contacted staff at [facility] and was able to ascertain that staff was concerned regarding redness around the catheter site as well as concern regarding rash on extremities. As noted physical exam (above), there is very faint/trace erythema surrounding the left chest wall HD catheter insertion site c/w minor local irritation and not suggestive of infectious process. I do not see a rash on the extremities; there is a solitary , superficial abrasion to the left lower leg, anteriorly, without fluctuance , erythema, or discharge. There is flaking, dry skin on both hands, extensor surfaces; this skin is easily peeled off and there is no underl monse dermatological abnormality. Staff at [facility] does not report fevers, and patient is afebrile in ED. No emergent testing nor treatment is indicated at this time. Departure - Departure Disposition: 01 Home, Self Care Clinical Impression: Encounter for postoperative wound check Condition: Good Instructions: ED Wound Check Post Op No Infec Comments: The emergency left chest surgical site (where the catheter is inserted into the chest) does not look infected. There is no fever in the emergency department. No tests were performed at this time as there is no indication of infection. Discharge Date/Time: 08/08/22 05:01
[2022-08-08 04:36] VITALS: BP 135/80
== END 2022-08-08 05:01 | disposition home or self-care (01) ==
LOC: EDUNIT# → ED 04:17
DX: S80.812A Abrasion, left lower leg, initial encounter (principal); X58.XXXA Exposure to other specified factors, initial encounter; L85.3 Xerosis cutis; Z95.828 Presence of other vascular implants and grafts
CPT/HCPCS: 99282; 99283

== ENCOUNTER 2022-08-08 04:58 | Outpatient (CLI) | payer MEDICARE, OTHER | END 2022-08-08 23:59 | LOC: EMS 04:58 | PROVIDERS: ATTEND Emergency Medicine | DX: R41.0 Disorientation, unspecified (principal) | CPT/HCPCS: A0425; A0428 ==

== ENCOUNTER 2022-08-22 08:34 | Outpatient (CLI) | payer MEDICARE, OTHER | END 2022-08-22 23:59 | disposition critical access hospital (66) | LOC: EMS 08:34 | DX: T85.528A Displacement of other gastrointestinal prosthetic devices, implants and grafts, initial encounter (principal) | CPT/HCPCS: A0425; A0429 ==

== ENCOUNTER 2022-08-22 09:20 | Emergency (ER) | payer MEDICARE, OTHER ==
[2022-08-22 09:37] VITALS: BP 161/71
--- NOTE | 2022-08-22 09:45 | ED Physician Documentation ---
History of Present Illness - Stated complaint Stated Complaint: PEG TUBE OUT - Chief complaint Chief Complaint: General - History obtained from History obtained from: Patient - Additonal information Additional information: Patient is a 71-year-old from [facility] presenting for replacement of her G-tube which fell out this morning during a dressing change. Her G-tube was placed last October. Patient is nonverbal at baseline is not able to provide any history. 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 ), Renal insuffiency HEENT: Other Psych: None Musculoskeletal: Osteoarthritis Derm: None - Past Surgical History Past Surgical History: Yes Cardiovascular: Pacemaker - Present Medications Home Medications: Ambulatory Orders Medication Instructions Recorded Confirmed Torsemide 40 mg PEG DAILY 08/23/20 03/17/22 Atorvastatin [Lipitor] 40 mg PO DAILY 09/21/20 03/17/22 Losartan [Cozaar] 75 mg PEG DAILY 09/21/20 03/17/22 Insulin Lispro [Humalog] 5 units SUBQ TIDWM 10/05/20 03/17/22 Acetaminophen [Tylenol] 650 mg PEG Q4HR PRN 03/17/22 03/17/22 Apixaban [Eliquis] 2.5 mg PEG BID 03/17/22 03/17/22 Calcium Carbonate [Tums (Calcium 1,000 mg PEG AC 03/17/22 03/17/22 Carbonate 500mg)] Folic Acid 1 mg PEG DAILY 03/17/22 03/17/22 Melatonin 10 mg PEG HS 03/17/22 03/17/22 Metoclopramide [Reglan] 5 mg PEG Q6HR PRN 03/17/22 03/17/22 Omeprazole 20 mg PEG AC 03/17/22 03/17/22 Tizanidine HCl [Zanaflex] 2 mg PEG TID 03/17/22 03/17/22 - Allergies Allergies/Adverse Reactions: Allergies Allergy/AdvReac Type Severity Reaction Status Date / Time lisinopril AdvReac Intermediate Unknown Verified 08/08/22 04:28 naproxen AdvReac Rash Verified 08/08/22 04:28 - Social History Does the pt smoke?: No Smoking Status: Never smoker Does the pt drink ETOH?: Yes Does the pt have substance abuse?: No - Immunizations Immunizations are current?: Yes Immunizations: TDAP current <10years - POLST Patient has POLST: No PD ED PE NORMAL - General General: No acute distress, Well developed/nourished, Other (Alert, appears to be at baseline per EMS) - HEENT HEENT: No: Moist mucous membranes - Neck Neck: Supple, no meningeal sign - Cardiac Cardiac: RRR - Respiratory Respiratory: No respiratory distress - Abdomen Abdomen: Normal bowel sounds, Soft, Non tender, Non distended, Other (G-tube site to left abdomen, no surrounding erythema or swelling) - Derm Derm: Warm and dry - Neuro Neuro: No: Normal speech Results - Vitals Vitals: Vital Signs - 24 hr 08/22/22 09:35 Temperature 36.5 C Heart Rate 60 Respiratory 12 Rate Blood Pressure 161/71 H O2 Saturation 100 Oxygen O2 Source [With Activity] Room air O2 Source Room air Procedures - General procedure General procedure: G-tube site was inspected. It was cleaned and a 22Fr G-tube was inserted without any difficulty. Confirmation was obtained with an x-ray. PD Medical Decision Making - ED course ED course: Patient presenting for G-tube replacement. She has a history of a stroke and requires G-tube. It was placed last year. I have personally replaced this in March of last year.Her abdominal exam is benign and her vital signs are stable. A 22 Maltese G-tube was inserted without any difficulty. This is the only size that we had available. Confirmation was obtained with a 1 view x-ray which I also reviewed. [facility] Departure - Departure Disposition: 01 Home, Self Care Clinical Impression: Visit for feeding tube placement Condition: Stable Comments: Please take caution when cleaning the feeding tube. Make sure you flush it every time you use it.Please make sure that it stays secure on the patient. We replaced the feeding tube with what we had available today which was a 22- gauge. If she needs a different size and I would recommend following up with her Primary care team to have it ordered as an outpatient procedure. Return to the emergency department with any concerns. Discharge Date/Time: 08/22/22 10:05
[2022-08-22] MEDS ORDERED: DIATR MEGLU/DIATRIZOATE SODIUM 120 ML BOTTLE PO ONE ×2 (09:46)
[2022-08-22] MEDS ORDERED: DIATRIZOATE MEGLU/DIATRIZO SOD 30 ML BOTTLE PO ONE ×2 (09:52→09:57)
--- OUTSIDE RECORDS SUMMARY | 2022-08-22 10:02 | EXTERNAL MEDICAL SUMMARY RPT | Continuity of Care Document ---
Author Name Unknown Address [address] [place] [address] Phone Organization [facility] Address [address] [place] [address] Phone Care Team Providers Care Child Monitor Name Role Phone Latrice, Provider Unavailable Unavailable Problems date description facility 2022-08-09 00:00 Gastroesophageal reflux disease All 2022-08-09 00:00 Diabetes mellitus wi thout mention of complication, type II or unspecified type, uncontrolled All 2022-08-09 00:00 Other and unspecified hyperlipi demia All 2022-08-09 00:00 Type II diabetes mellitus uncon trolled All 2022-08-09 00:00 Esophageal reflux All 2022-08-09 00:00 Hyperlipidemia All 2022-08-09 00:00 Type 2 diabetes mellitus with h yperglycemia All 2022-08-09 00:00 Overweight All 2022-08-09 00:00 Hyperlipidemia, unspecified All 2022-08-09 00:00 Gastro-esophageal reflux diseas e without esophagitis All 2022-08-09 00:00 Family history of diabetes susana itus All
--- NOTE | 2022-08-22 10:12 | XRAY Report ---
PROCEDURE: No-Charge 1V Abdomen INDICATIONS: with gastrograffin/G tube confirmation TECHNIQUE: 1 view of the abdomen were acquired. COMPARISON: 03/17/2022 FINDINGS: Surgical changes and devices: Partially seen cardiac electrode leads. Percutaneous gastrostomy in pl [place]. Bowel: No evidence of bowel obstruction. Injected contrast in the percutaneous gastrostomy opacifies the gastric rugae. Soft tissues: No suspicious calcifications. Bones: No suspicious bony abnormalities. IMPRESSION: Injected contrast is seen in the stomach. Reviewed by: Eric Calix MD on 08/22/2022 10:10 AM PDT Approved by: Eric Calix MD on 08/22/2022 10:10 AM PDT Station ID: [id number]
== END 2022-08-22 10:05 | disposition home or self-care (01) ==
LOC: EDBD → EDUNIT# → ED 09:20
DX: Z43.1 Encounter for attention to gastrostomy (principal); E78.00 Pure hypercholesterolemia, unspecified; I25.10 Atherosclerotic heart disease of native coronary artery without angina pectoris; I12.0 Hypertensive chronic kidney disease with stage 5 chronic kidney disease or end stage renal disease; E11.22 Type 2 diabetes mellitus with diabetic chronic kidney disease; N18.6 End stage renal disease; Z99.2 Dependence on renal dialysis; Z95.0 Presence of cardiac pacemaker; Z79.4 Long term (current) use of insulin; Z79.899 Other long term (current) drug therapy; Z79.01 Long term (current) use of anticoagulants
CPT/HCPCS: 43762; 74018; 99283; Q9963

== ENCOUNTER 2022-08-22 10:06 | Outpatient (CLI) | payer MEDICARE, OTHER | END 2022-08-22 23:59 | disposition home or self-care (01) | LOC: EMS 10:06 | PROVIDERS: ATTEND Emergency Medicine | DX: Z43.1 Encounter for attention to gastrostomy (principal) | CPT/HCPCS: A0425; A0428 ==

== ENCOUNTER 2022-08-25 15:38 | Outpatient (CLI) | payer MEDICARE, OTHER ==
[2022-08-25 15:44] LABS: BASOPHILS # (AUTO) 0.1 10^3/uL (0.0-0.1); EOSINOPHILS # (AUTO) 0.4 10^3/uL (0.0-0.7); EOSINOPHILS % (AUTO) 6.1 %; HCT - HEMATOCRIT 32.8 % (37.0-47.0); LYMPHOCYTES # (AUTO) 1.2 10^3/uL (1.5-3.5); LYMPHOCYTES % (AUTO) 19.8 %; MEAN CORPUSCULAR HEMOGLOBIN 32.6 pg (27.0-31.0); MEAN CORPUSCULAR HGB CONC 30.5 g/dL (32.0-36.0); MEAN CORPUSCULAR VOLUME 106.8 fL (81.0-99.0); MEAN PLATELET VOLUME 10.7 fL (7.9-10.8); MONOCYTES # (AUTO) 0.6 10^3/uL (0.0-1.0); NEUTROPHILS % (AUTO) 62.9 %; PLT - PLATELET COUNT 174 10^3/uL (130-450); RED BLOOD COUNT 3.07 10^6/uL (4.20-5.40); RED CELL DISTRIBUTION WIDTH 13.1 % (12.0-15.0); WHITE BLOOD COUNT 6.3 x10^3/uL (4.8-10.8)
== END 2022-08-25 15:39 | disposition home or self-care (01) ==
LOC: LAB.R 15:38
PROVIDERS: ATTEND Registered Nurse
DX: A41.01 Sepsis due to Methicillin susceptible Staphylococcus aureus (principal)
CPT/HCPCS: 85025

== ENCOUNTER 2022-08-26 08:00 | Outpatient (CLI) | payer MEDICARE, OTHER ==
[2022-08-26 17:22] LABS: ALBUMIN 2.8 g/dL (3.2-5.5); ALBUMIN/GLOBULIN RATIO 0.6 (1.0-2.2); ALKALINE PHOSPHATASE 101 IU/L (42-121); ALT ALANINE AMINOTRANSFERASE < 10 IU/L (10-60); AST ASPARTATE AMINOTRANSFERASE 18 IU/L (10-42); BILIRUBIN,TOTAL 0.5 mg/dL (0.2-1.0); BUN - BLOOD UREA NITROGEN 60 mg/dL (6-20); CALCIUM 8.8 mg/dL (8.5-10.3); CARBON DIOXIDE - CO2 28 mmol/L (21-32); CHLORIDE 90 mmol/L (101-111); CREATININE 3.3 mg/dL (0.4-1.0); GFR - MDRD 14 (>89); GLUCOSE 182 mg/dL (70-100); POTASSIUM 4.6 mmol/L (3.5-5.0); SODIUM 130 mmol/L (135-145); TOTAL PROTEIN 7.2 g/dL (6.7-8.2)
== END 2022-08-26 23:59 | disposition home or self-care (01) ==
LOC: LAB.R 08:00
PROVIDERS: ATTEND Registered Nurse
DX: N18.6 End stage renal disease (principal)
CPT/HCPCS: 80053

== ENCOUNTER 2023-04-04 04:17 | Outpatient (CLI) | payer MEDICARE | END 2023-04-04 23:59 | disposition critical access hospital (66) | LOC: EMS 04:17 | DX: R07.9 Chest pain, unspecified (principal); R41.82 Altered mental status, unspecified | CPT/HCPCS: A0425; A0429 ==

== ENCOUNTER 2023-04-04 04:23 | Emergency (ER) | payer MEDICARE, OTHER ==
--- NOTE | 2023-04-04 05:03 | ED Physician Documentation ---
PD HPI CHEST PAIN - Stated complaint Stated Complaint: CP - Chief complaint Chief Complaint: Cardiac - History obtained from History obtained from: EMS - Additional information Additional information: 72-year-old woman with history of CVA with right-sided hemiparesis, nonverbal at baseline, end-stage renal disease on hemodialysis, G-tube, pacemaker, type 2 diabetes, presents with a couple episodes of vomiting tonight. When asked by medical staff if she had chest pain she nodded. She was administered nitroglycerin per MD instructions over the phone and blood pressure dropped, therefore EMS was called. In the emergency department, patient denies pain anywhere, shaking her head when asked. further history limited by patient nonverbal at baseline. 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 : Dialysis, Renal insuffiency HEENT: Other Psych: None Musculoskeletal: Osteoarthritis Derm: None - Past Surgical History Past Surgical History: Yes Cardiovascular: Pacemaker - Present Medications Home Medications: Ambulatory Orders Medication Instructions Recorded Confirmed Atorvastatin [Lipitor] 40 mg PO DAILY 09/21/20 03/17/22 Losartan [Cozaar] 50 mg PEG DAILY 09/21/20 03/17/22 Acetaminophen [Tylenol] 650 mg PEG Q4HR PRN 03/17/22 03/17/22 Apixaban [Eliquis] 2.5 mg PEG BID 03/17/22 03/17/22 Melatonin 10 mg PEG HS 03/17/22 03/17/22 Insulin Regular, Human [Novolin R] 100 unit SUBQ QID 04/04/23 04/04/23 Mirtazapine 7.5 mg PO QPM 04/04/23 04/04/23 amLODIPine [Norvasc] 5 mg PO DAILY 04/04/23 04/04/23 - Allergies Allergies/Adverse Reactions: Allergies Allergy/AdvReac Type Severity Reaction Status Date / Time lisinopril AdvReac Intermediate Unknown Verified 04/04/23 04:46 naproxen AdvReac Rash Verified 04/04/23 04:46 - Social History Does the pt smoke?: No Smoking Status: Never smoker Does the pt drink ETOH?: Yes Does the pt have substance abuse?: No - Immunizations Immunizations are current?: Yes Immunizations: TDAP current <10years - POLST Patient has POLST: No PD ED PE NORMAL - Vitals Vital signs reviewed: Yes - General General: No acute distress, Other (alert, eye opening to verbal cue. ) - HEENT HEENT: Atraumatic, PERRL, EOMI - Neck Neck: Supple, no meningeal sign - Cardiac Cardiac: RRR - Respiratory Respiratory: No respiratory distress, Clear bilaterally - Abdomen Abdomen: Non tender, Non distended - Derm Derm: Normal color, Warm and dry - Neuro Neuro: Other (R sided hemiparesis) Results - Vitals Vitals: Oxygen O2 Source [] Room air O2 Source Room air - EKG (time done) 0454 EKG releavant findings:: EKG personally interpreted by author of this note. Relevant findings are: Rate: Rate (enter#) (60) Rhythm: Other (ventricular paced rhythm) Intervals: Wide QRS QRS: Normal Ischemia: Normal ST segments Compare to prior EKG: Unchanged from prior EKG (09/24/21) - Labs Labs: Laboratory Tests 04/04/23 04/04/23 04/04/23 05:31 05:31 07:35 WBC 7.7 RBC 2.72 L Hgb 9.0 L Hct 27.9 L MCV 102.6 H MCH 33.1 H MCHC 32.3 RDW 13.0 Plt Count 229 MPV 9.7 Neut # (Auto) 5.5 Lymph # (Auto) 1.2 L Sumner # (Auto) 0.6 Eos # (Auto) 0.3 Baso # (Auto) 0.1 Absolute Nucleated RBC 0.00 Nucleated RBC % 0.0 Sodium 128 L Potassium 4.0 Chloride 88 L Carbon Dioxide 28 Anion Gap 12.0 BUN 76 H Creatinine 3.4 H Estimated GFR (MDRD) 13 L Glucose 165 H Calcium 9.9 Total Bilirubin 0.5 AST 19 ALT 13 Alkaline Phosphatase 102 Troponin I High Sens 27.7 H* 28.9 H* Total Protein 8.1 Albumin 3.9 Globulin 4.2 Albumin/Globulin Ratio 0.9 L Lipase 12 PD Medical Decision Making - ED course ED course: 72yF presents to the ED with n/v tonight and chest pain, resolved s/p nitro at her nursing facility. EKG shows a paced rhythm similar to previous. plan to obtain cbc, abdominal panel, troponin. cxr noncontributory. Hb 9, downtrending in past several months. previous hb was 10 on 08/26/22. also with hyponatremia likely related to her ESRD with Na 128, stable from previous Na 130 on 08/26/22. Trop 28.9 and repeat 27.7, stable. Mild elevation expected with ESRD. Patient in NAD, well appearing. d/w patient and son. Plan is to f/u with her pcp. return precautions provided. Departure - Departure Disposition: 01 Home, Self Care Clinical Impression: Chest pain, Vomiting Condition: Stable Instructions: ED Chest Pain Atypical Unkn Cause Comments: You were seen in the emergency department for vomiting episode and chest pain. Your labwork, ekg and chest xray uncovered no emergent issues but you should still have close follow up. Please follow-up with your primary care provider and return to the emergency department if you have any new or worsening symptoms or other concerns. Forms: PCP List Discharge Date/Time: 04/04/23 09:37
[2023-04-04 05:35] LABS: BASOPHILS # (AUTO) 0.1 10^3/uL (0.0-0.1); BASOPHILS % (AUTO) 0.8 %; EOSINOPHILS # (AUTO) 0.3 10^3/uL (0.0-0.7); HCT - HEMATOCRIT 27.9 % (37.0-47.0); LYMPHOCYTES # (AUTO) 1.2 10^3/uL (1.5-3.5); LYMPHOCYTES % (AUTO) 16.1 %; MEAN CORPUSCULAR HEMOGLOBIN 33.1 pg (27.0-31.0); MEAN CORPUSCULAR HGB CONC 32.3 g/dL (32.0-36.0); MEAN CORPUSCULAR VOLUME 102.6 fL (81.0-99.0); MEAN PLATELET VOLUME 9.7 fL (7.9-10.8); MONOCYTES # (AUTO) 0.6 10^3/uL (0.0-1.0); MONOCYTES % (AUTO) 7.4 %; NEUTROPHILS # (AUTO) 5.5 10^3/uL (1.5-6.6); NEUTROPHILS % (AUTO) 71.4 %; PLT - PLATELET COUNT 229 10^3/uL (130-450); RED BLOOD COUNT 2.72 10^6/uL (4.20-5.40); WHITE BLOOD COUNT 7.7 x10^3/uL (4.8-10.8)
[2023-04-04 05:47] LABS: ALBUMIN 3.9 g/dL (3.2-5.5); ALBUMIN/GLOBULIN RATIO 0.9 (1.0-2.2); BILIRUBIN,TOTAL 0.5 mg/dL (0.2-1.0); CALCIUM 9.9 mg/dL (8.5-10.3); CREATININE 3.4 mg/dL (0.6-1.3); TOTAL PROTEIN 8.1 g/dL (6.4-8.9)
[2023-04-04 06:29] LABS: TROPONIN I HIGH SENSITIVITY 27.7 ng/L (2.3-14.8)
--- NOTE | 2023-04-04 07:55 | XRAY Report ---
PROCEDURE: Chest 1V INDICATIONS: Chest Pain TECHNIQUE: One view of the chest was acquired. COMPARISON: March 10, 2022 FINDINGS: Surgical changes and devices: Left chest wall pulse generator with electrode leads in place. A left central line terminates in the SVC. Lungs and pleura: No consolidation or pleural effusion. Low lung volumes. Mediastinum: Normal heart size Aortic calcifications. Bones and chest wall: Degenerative changes. IMPRESSION: Portable radiograph with low lung volumes, no acute abnormality.Agree with preliminary report. Reviewed by: Eric Calix MD on 04/04/2023 7:54 AM PST Approved by: Eric Calix MD on 04/04/2023 7:54 AM PST Station ID: [id number]
[2023-04-04 09:09] VITALS: BP 103/61; O2SAT 100
== END 2023-04-04 09:37 | disposition home or self-care (01) ==
LOC: EDUNIT# → ED 04:23
DX: R11.2 Nausea with vomiting, unspecified (principal); R07.9 Chest pain, unspecified; I69.351 Hemiplegia and hemiparesis following cerebral infarction affecting right dominant side; E11.22 Type 2 diabetes mellitus with diabetic chronic kidney disease; I13.11 Hypertensive heart and chronic kidney disease without heart failure, with stage 5 chronic kidney disease, or end stage renal disease; N18.6 End stage renal disease; Z99.2 Dependence on renal dialysis; Z95.0 Presence of cardiac pacemaker; Z79.01 Long term (current) use of anticoagulants; Z79.4 Long term (current) use of insulin
CPT/HCPCS: 36415; 80053; 83690; 84484; 85025; 93005; 99283; 99284

== ENCOUNTER 2023-04-04 09:27 | Outpatient (CLI) | payer MEDICARE | END 2023-04-04 23:59 | LOC: EMS 09:27 | PROVIDERS: ATTEND Emergency Medicine | DX: Z51.5 Encounter for palliative care (principal); F03.90 Unspecified dementia, unspecified severity, without behavioral disturbance, psychotic disturbance, mood disturbance, and anxiety; I69.351 Hemiplegia and hemiparesis following cerebral infarction affecting right dominant side; Z74.01 Bed confinement status | CPT/HCPCS: A0425; A0428 ==

== ENCOUNTER 2023-07-10 15:08 | Outpatient (CLI) | payer MEDICARE, MEDICAID ==
[2023-07-10 20:57] LABS: ESTIMATED AVERAGE GLUCOSE 128 mg/dL (70-100); HEMOGLOBIN A1c% 6.1 % (4.27-6.07)
== END 2023-07-10 15:09 | disposition home or self-care (01) ==
LOC: LAB.R 15:08
PROVIDERS: ATTEND Registered Nurse
DX: E11.22 Type 2 diabetes mellitus with diabetic chronic kidney disease (principal)
CPT/HCPCS: 83036

== ENCOUNTER 2023-07-24 08:12 | Outpatient (CLI) | payer MEDICARE, MEDICAID | END 2023-07-24 23:59 | disposition critical access hospital (66) | LOC: EMS 08:12 | DX: K94.23 Gastrostomy malfunction (principal); I69.351 Hemiplegia and hemiparesis following cerebral infarction affecting right dominant side; N18.6 End stage renal disease; Z99.2 Dependence on renal dialysis | CPT/HCPCS: A0425; A0429 ==

== ENCOUNTER 2023-07-24 08:16 | Emergency (ER) | payer MEDICARE, MEDICAID ==
--- NOTE | 2023-07-24 08:23 | ED Physician Documentation ---
History of Present Illness - Stated complaint Stated Complaint: PEG TUBE OUT - History obtained from History obtained from: Family (Son), EMS - Additonal information Additional information: Patient is a 72-year-old female from [facility] with a history of a CVA, nonverbal at baseline presenting for G-tube replacement. This morning staff noted that the G-tube had fallen out sometime overnight. Her G-tube has been in for over a year and I have personally replaced it at least on 1 occasion.Per her son she has otherwise been doing at her baseline. She is scheduled for her usual dialysis today which she normally has on Sunday and . She missed her window this morning but dialysis states that they should likely be able to get her into the schedule for today. 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 : Dialysis, Renal insuffiency HEENT: Other Psych: None Musculoskeletal: Osteoarthritis Derm: None - Past Surgical History Past Surgical History: Yes Cardiovascular: Pacemaker - Present Medications Home Medications: Ambulatory Orders Medication Instructions Recorded Confirmed Atorvastatin [Lipitor] 40 mg PO DAILY 09/21/20 07/24/23 Losartan [Cozaar] 50 mg PEG DAILY 09/21/20 07/24/23 Acetaminophen [Tylenol] 650 mg PEG Q4HR PRN 03/17/22 07/24/23 Apixaban [Eliquis] 2.5 mg PEG BID 03/17/22 07/24/23 Melatonin 10 mg PEG HS 03/17/22 07/24/23 Insulin Regular, Human [Novolin R] 100 unit SUBQ QID 04/04/23 07/24/23 Mirtazapine 7.5 mg PO QPM 04/04/23 07/24/23 amLODIPine [Norvasc] 5 mg PO DAILY 04/04/23 07/24/23 - Allergies Allergies/Adverse Reactions: Allergies Allergy/AdvReac Type Severity Reaction Status Date / Time lisinopril AdvReac Intermediate Unknown Verified 07/24/23 08:31 naproxen AdvReac Rash Verified 07/24/23 08:31 - Social History Does the pt smoke?: No Smoking Status: Never smoker Does the pt drink ETOH?: Yes Does the pt have substance abuse?: No - Immunizations Immunizations are current?: Yes Immunizations: TDAP current <10years - POLST Patient has POLST: No PD ED PE NORMAL - General General: No acute distress, Well developed/nourished, Other (Alert) - HEENT HEENT: Atraumatic, Moist mucous membranes - Cardiac Cardiac: RRR - Respiratory Respiratory: No respiratory distress - Abdomen Abdomen: Normal bowel sounds, Soft, Non tender, Non distended, Other (G-tube site to mid abdomen with no surrounding erythema or swelling, no tenderness) Results - Vitals Vitals: Vital Signs - 24 hr 07/24/23 07/24/23 08:22 09:55 Temperature 36.3 C L Heart Rate 60 78 Respiratory 18 18 Rate Blood Pressure 162/60 H 138/82 H O2 Saturation 100 98 Oxygen O2 Source [With Activity] Room air O2 Source Room air Procedures - General procedure General procedure: G-tube site was inspected. It was cleaned With saline followed by Betadine and a 22 Faroese G-tube was inserted without any difficulty. Balloon was inflated with 10 mL of saline. Confirmation was obtained with an x-ray. PD Medical Decision Making - ED course ED course: Patient is a 72-year-old female presenting for replacement of her G-tube which fell out sometime overnight. It has been in place for at least over a year and I have personally replaced it in the past without issue. 22 Faroese G-tube was placed into G-tube site without any difficulty and confirmed with x-ray. Patient tolerated without issue. Son is at the bedside and is planning to call dialysis to reschedule her appointment for later today. Departure - Departure Disposition: 01 Home, Self Care Clinical Impression: Encounter for feeding tube placement Condition: Stable Instructions: ED G Tube Replacement Comments: Please take caution when cleaning the feeding tube. Make sure you flush it every time you use it.Please make sure that it stays secure on the patient. Return to the emergency department with any concerns. Please try to reschedule your dialysis appointment for today or for the first available appointment. Forms: PCP List Discharge Date/Time: 07/24/23 09:40
[2023-07-24] MEDS: LIDOCAINE 2% URO-JET 5 ML SYRINGE UR STA (08:45)
[2023-07-24] MEDS ORDERED: DIATRIZOATE MEGLU/DIATRIZO SOD 30 ML BOTTLE PO ONE (09:01)
[2023-07-24] MEDS: DIATR MEGLU/DIATRIZOATE SODIUM 120 ML BOTTLE PEG ONE (09:05)
--- NOTE | 2023-07-24 10:02 | XRAY Report ---
PROCEDURE: No-Charge 1V Abdomen INDICATIONS: G tube placement TECHNIQUE: 1 view of the abdomen were acquired. COMPARISON: None. FINDINGS: Surgical changes and devices: Contrast has been injected through a gastrostomy tube. Contrast is poo led within the dependent gastric cardia. Bowel: No pneumoperitoneum. The bowel gas pattern is normal. Stool load within normal limits. Soft tissues: No masses; visualized solid organ contours appear normal in size. No suspicious abdom inal calcifications. Bones: No suspicious bony abnormalities. IMPRESSION: Gastrostomy tube with contrast injected into the gastric cardia. Reviewed by: Inez Anderson MD on 07/24/2023 10:00 AM PDT Approved by: Inez Anderson MD on 07/24/2023 10:00 AM PDT Station ID: [id number]
[2023-07-24 10:15] VITALS: BP 138/82; O2SAT 98
== END 2023-07-24 09:40 | disposition home or self-care (01) ==
LOC: EDUNIT# → EDBD → ED 08:16
DX: K94.23 Gastrostomy malfunction (principal); I10 Essential (primary) hypertension; E78.00 Pure hypercholesterolemia, unspecified; I25.10 Atherosclerotic heart disease of native coronary artery without angina pectoris; Z86.73 Personal history of transient ischemic attack (TIA), and cerebral infarction without residual deficits; E11.9 Type 2 diabetes mellitus without complications; Z99.2 Dependence on renal dialysis; Z95.0 Presence of cardiac pacemaker; Z79.01 Long term (current) use of anticoagulants; Z79.4 Long term (current) use of insulin
CPT/HCPCS: 43762; 74018; 99283; Q9963

== ENCOUNTER 2023-07-24 09:47 | Outpatient (CLI) | payer MEDICARE, MEDICAID | END 2023-07-24 23:59 | disposition home or self-care (01) | LOC: EMS 09:47 | PROVIDERS: ATTEND Emergency Medicine | DX: I63.9 Cerebral infarction, unspecified (principal); G82.20 Paraplegia, unspecified; N18.6 End stage renal disease; Z99.2 Dependence on renal dialysis | CPT/HCPCS: A0425; A0428 ==

== ENCOUNTER 2024-01-01 15:03 | Emergency (ER) | payer MEDICARE, MEDICAID ==
--- NOTE | 2024-01-01 15:09 | ED Physician Documentation ---
History of Present Illness - Stated complaint Stated Complaint: PEG TUBE OUT - History obtained from History obtained from: Family - Additonal information Additional information: She has a history of stroke and is at [facility] with PEG tube in. It fell out today. She is at her neurologic baseline. 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 : Dialysis, Renal insuffiency HEENT: Other Psych: None Musculoskeletal: Osteoarthritis Derm: None - Past Surgical History Past Surgical History: Yes Cardiovascular: Pacemaker - Present Medications Home Medications: Ambulatory Orders Medication Instructions Recorded Confirmed Atorvastatin [Lipitor] 40 mg PO DAILY 09/21/20 07/24/23 Losartan [Cozaar] 50 mg PEG DAILY 09/21/20 07/24/23 Acetaminophen [Tylenol] 650 mg PEG Q4HR PRN 03/17/22 07/24/23 Apixaban [Eliquis] 2.5 mg PEG BID 03/17/22 07/24/23 Melatonin 10 mg PEG HS 03/17/22 07/24/23 Insulin Regular, Human [Novolin R] 100 unit SUBQ QID 04/04/23 07/24/23 Mirtazapine 7.5 mg PO QPM 04/04/23 07/24/23 amLODIPine [Norvasc] 5 mg PO DAILY 04/04/23 07/24/23 - Allergies Allergies/Adverse Reactions: Allergies Allergy/AdvReac Type Severity Reaction Status Date / Time lisinopril AdvReac Intermediate Unknown Verified 07/24/23 08:31 naproxen AdvReac Rash Verified 07/24/23 08:31 - Social History Does the pt smoke?: No Smoking Status: Never smoker Does the pt drink ETOH?: Yes Does the pt have substance abuse?: No - Immunizations Immunizations are current?: Yes Immunizations: TDAP current <10years - POLST Patient has POLST: No PD ED PE NORMAL - Vitals Vital signs reviewed: Yes - General General: Other (She is alert but nonverbal, does not follow commands.) - Abdomen Abdomen: Other (PEG tube site left upper quadrant, they placed a Ma to keep the tract open. This was removed and the PEG tube, 22 Hong [place]er was easily placed without resistance.) Results - Vitals Vitals: Oxygen O2 Source [With Activity] Room air O2 Source Room air Departure - Departure Disposition: 01 Home, Self Care Clinical Impression: PEG tube malfunction Condition: Good Record reviewed to determine appropriate education?: Yes Instructions: ED G Tube Replacement Comments: Her PEG tube was replaced with a 22 [place]er. You can use it as usual. Return for new or worsening symptoms.
[2024-01-01 15:22] VITALS: BP 143/68; O2SAT 99
== END 2024-01-01 15:15 | disposition home or self-care (01) ==
LOC: EDUNIT# → ED 15:03
DX: K94.23 Gastrostomy malfunction (principal); Z86.73 Personal history of transient ischemic attack (TIA), and cerebral infarction without residual deficits; R41.0 Disorientation, unspecified
CPT/HCPCS: 43762; 99281